=== PATIENT | male | born 1990 | race Caucasian/White ===

== ENCOUNTER 2021-01-06 19:56 | Inpatient (IN) | payer OTHER, SELFPAY ==
[2021-01-06 20:00] VITALS: BP 121/72; PULSE 90; RESP 16; TEMP 37.2; O2SAT 95; BMI 30.4
[2021-01-06] MEDS: LORazepam 1 MG TABLET 2 MG PO (20:17)
[2021-01-06 20:54] LABS: Appearance Urine HAZY; Color Urine DK YELLOW; Glucose Urine UA NEG (NEG); Leukocyte Esterase Urine NEG (NEG); Nitrite Urine NEG (NEG); Specific Gravity - Urine >= 1.030 (1.005-1.025); UACC Culture Trigger NO; Urine Blood NEG (NEG); Urine Ketones 15 MG/DL (NEG); Urine Protein 1+ MG/DL (NEG-TRACE)
[2021-01-06 21:02] LABS: Bacteria Urine TRACE /LPF; Granular Casts Urine 0-2 /LPF; Hyaline Casts Urine 0-2 /LPF; Mucus Urine 4+ /LPF; RBC Urine 0-2 /HPF (0); Squamous Epithelial Cell Urine 2+ /LPF; WBC Urine 0 /HPF (0-4)
--- NOTE | 2021-01-06 21:10 | ED.PSYCH ---
HPI - Psych General Chief Complaint: Psychiatric Symptoms Stated Complaint: si Time Seen by Provider: 01/06/21 20:13 Source: patient Mode of arrival: ambulatory Limitations: no limitations History of Present Illness HPI Narrative: 30-year-old male with a past medical history of anxiety, depression, substance abuse here with complaints of suicidal thoughts with plan to overdose on his IV heroin. Patient tells me he is not currently taking any medications for his mental health. He is on methadone 60 mg daily. He continues to use IV drugs tend to 20 bundles of heroin daily. He also uses cocaine daily. He does inject cocaine. He denies any additional drug use. No homicidal ideations or hallucinations. No physical complaints Related Data Home Medications Medication Instructions Recorded Confirmed methadone 10 mg/mL oral 60 mg PO DAILY 01/06/21 concentrate (Methadone Intensol) Allergies Allergy/AdvReac Type Severity Reaction Status Date / Time No Known Allergies Allergy Unverified 01/03/20 17:05 [No Known Allergies*] Review of Systems Review of Systems: Yes all other systems are reviewed and are negative Constitutional: Constitutional: Reports no additional constitutional complaints, Denies body ache(s), Denies chills, Denies fever(s), Denies headache(s) and Denies weakness Eyes: Eyes: Reports no additional eye complaints and Denies change in vision ENT: Reports system reviewed and no additional complaints, except as documented, Denies dizziness, Denies headache(s), Denies nasal congestion, Denies nasal discharge and Denies neck pain Cardiovascular: Cardiovascular: Reports no additional cardiovascular complaints, Denies chest pain, Denies leg edema and Denies dyspnea Respiratory: Respiratory: Reports no additional respiratory complaints, Denies cough and Denies dyspnea Gastrointestinal: Gastrointestinal: Reports no additional gastrointestinal complaints, Denies abdominal pain, Denies diarrhea, Denies nausea and Denies vomiting Genitourinary: Genitourinary: Denies urinary incontinence Musculoskeletal: Musculoskeletal: Reports no additional musculoskeletal complaints, Denies back pain, Denies arthralgias, Denies joint swelling, Denies neck pain, Denies numbness and Denies tingling Integumentary/Breasts: Skin/Breast: Reports system reviewed and no additional complaints, except as docu and Denies rash Neurologic: Reports system reviewed and no additional complaints, except as documented, Denies Abnormal speech present, Denies dizziness, Denies headache(s), Denies numbness, Denies tingling and Denies weakness Psychiatric: Psychiatric: Reports anxiety, Denies depression, Denies homicidal ideation and Reports suicidal ideation [facility] Past Medical History Attestation statement: The following information was validated with the patient. Source: old records reviewed and nursing notes reviewed Medical History Anxiety Depressed Social History Social History Advance Directives: No Advance Directives Information Provided: Yes Physical Exam Vital Signs: Vital Signs: Last Vital Signs Temp 99.0 F 01/06/21 20:00 Pulse 90 01/06/21 20:00 Resp 16 01/06/21 20:00 BP 121/72 01/06/21 20:00 Pulse Ox 95 01/06/21 20:00 Body Mass Index 30.4 Const: General: cooperative, healthy appearing, comfortable and no acute distress Orientation/consciousness: patient oriented x3 Limitations: no limitations HENMT: Head: Yes normal to inspection Ears: hearing grossly normal bilaterally General nose exam: Normal external nose present Face and sinus: Yes normal facial exam Mouth: Normal oral and palatal mucosa present Throat: Yes posterior oropharynx normal Eyes: General: appearance normal, both eyes and all related structures Pupils: Equal, round and reactive pupils present Neck: Neck: Yes normal visual inspection Chest: Chest palpation & inspection: normal inspection of the chest Resp: Effort & Inspection: normal respiratory effort Auscultation: clear to auscultation bilaterally Cardio: Rate: regular rate Rhythm: regular rhythm Peripheral pulses: Peripheral pulses 2+ throughout GI: Inspection: Yes normal to inspection Palpation (GI): Soft to palpation and nontender Auscultation: normal bowel sounds Back/Spine/Pelvis: Thoracic/Lumbar Spine: thoracic and lumbar spine normal to inspection Skin: General skin exam: no rashes or lesions noted Neuro: General: patient oriented x3, no focal motor deficits and normal sensation to monofilament Cranial nerves: Yes CN's II-XII intact bilaterally and Yes Equal, round and reactive pupils present Cognition (Neuro): normal cognition Speech: No Abnormal speech present Gait exam (Neuro): Normal gait present Motor exam (neuro): 5/5 motor strength present throughout Extrem: General: Yes normal to inspection Course Course Course Narrative: 30-year-old male here with complaints of suicidal thoughts No concern for acute ingestion or trauma No physical complaints Will check screening labs including drug screen and COVID screen. Will need crisis evaluation [id number] in physician observation pending disposition MDM - Psych Medical Records Attestation: I reviewed the patient's medical records. Lab Data Attestation: I reviewed the patient's lab results. Result diagrams: 01/07/21 00:07 01/07/21 01:06 Labs: Lab Results 01/06/21 01/06/21 01/06/21 Range/Units 20:41 20:44 20:44 WBC (4.8-10.8) X10*3/uL RBC (4.60-5.80) X10*6/uL Hgb (14.0-18.0) g/dl Hct (42-52) % MCV (80-98) fL MCH (27.0-33.0) pg MCHC (31.0-36.0) g/dl RDW (11.0-16.0) % Plt Count (160-400) X10*3/uL MPV (9.4-12.4) fL Immature Gran % (Auto) (0.0-0.4) % Neut % (Auto) (45-73) % Lymph % (Auto) (20-40) % Pratt % (Auto) (2-11) % Eos % (Auto) (0-4) % Baso % (Auto) (0-2) % Lymph # (Auto) (1.2-4.9) X10*3/uL Pratt # (Auto) (0.1-1.2) X10*3/uL Eos # (Auto) (0.0-0.4) X10*3/uL Baso # (Auto) (0.0-0.2) X10*3/uL Abs Immat Gran (auto) (0.00-0.03) X10*3/uL Absolute Neuts (auto) (2.0-8.3) X10*3/uL Absolute Nucleated RBC (0.0-0.012) X10*3/uL Nucleated RBC % (auto) (0.0-0.2) /100WBC Sodium (135-145) mmol/L Potassium (3.3-5.1) mmol/L Chloride (96-108) mmol/L Carbon Dioxide (22-29) mmol/L Anion Gap (12-20) BUN (9-16) mg/dL Creatinine (0.5-1.4) mg/dL Estim Creat Clear Calc Estimated GFR Random Glucose (60-115) mg/dL Calcium (8.4-10.2) mg/dL Total Bilirubin (0.0-1.0) mg/dL Direct Bilirubin (0.0-0.5) mg/dL AST (5-37) U/L ALT (0-40) U/L Alkaline Phosphatase (39-117) U/L Total Protein (6.5-8.0) g/dL Albumin (3.5-5.0) g/dL Urine Color DK YELLOW Urine Appearance HAZY Urine pH 6.0 (5.0-8.0) Ur Specific [place] >= 1.030 H (1.005-1.025) Urine Protein 1+ H (NEG-TRACE) MG/DL Urine Glucose (UA) NEG (NEG) MG/DL Urine Ketones 15 (NEG) MG/DL Urine Blood NEG (NEG) Urine Nitrite NEG (NEG) Ur Leukocyte Esterase NEG (NEG) Urine RBC 0-2 (0) /HPF Urine WBC 0 (0-4) /HPF Ur Squamous Epith Cells 2+ /LPF Urine Bacteria TRACE /LPF Hyaline Casts 0-2 /LPF Granular Casts 0-2 /LPF Urine Mucus 4+ /LPF Urine Opiates Screen Not Detected (Not Detect) Urine Fentanyl Screen POSITIVE H (Not Detect) Ur Barbiturates Screen Not Detected (Not Detect) Ur Phencyclidine Scrn Not Detected (Not Detect) Ur Amphetamines Screen Not Detected (Not Detect) U Benzodiazepines Scrn POSITIVE H (Not Detect) Urine Cocaine Screen POSITIVE H (Not Detect) U Marijuana (THC) Screen Not Detected (Not Detect) Ethyl Alcohol mg/dL COVID-19 ([facility]) Negative (Negative) COVID-19 Clin Com See Note 01/07/21 01/07/21 01/07/21 Range/Units 00:07 01:06 01:06 WBC 8.5 (4.8-10.8) X10*3/uL RBC 4.56 L (4.60-5.80) X10*6/uL Hgb 13.7 L (14.0-18.0) g/dl Hct 39.9 L (42-52) % MCV 87.5 (80-98) fL MCH 30.0 (27.0-33.0) pg MCHC 34.3 (31.0-36.0) g/dl RDW 13.4 (11.0-16.0) % Plt Count 243 (160-400) X10*3/uL MPV 9.2 L (9.4-12.4) fL Immature Gran % (Auto) 0.1 (0.0-0.4) % Neut % (Auto) 42.3 L (45-73) % Lymph % (Auto) 47.1 H (20-40) % Pratt % (Auto) 9.3 (2-11) % Eos % (Auto) 0.8 (0-4) % Baso % (Auto) 0.4 (0-2) % Lymph # (Auto) 4.0 (1.2-4.9) X10*3/uL Pratt # (Auto) 0.8 (0.1-1.2) X10*3/uL Eos # (Auto) 0.1 (0.0-0.4) X10*3/uL Baso # (Auto) 0.0 (0.0-0.2) X10*3/uL Abs Immat Gran (auto) 0.01 (0.00-0.03) X10*3/uL Absolute Neuts (auto) 3.6 (2.0-8.3) X10*3/uL Absolute Nucleated RBC 0.000 (0.0-0.012) X10*3/uL Nucleated RBC % (auto) 0.0 (0.0-0.2) /100WBC Sodium 139 (135-145) mmol/L Potassium 4.0 (3.3-5.1) mmol/L Chloride 104 (96-108) mmol/L Carbon Dioxide 24 (22-29) mmol/L Anion Gap 15 (12-20) BUN 30 H (9-16) mg/dL Creatinine 1.32 (0.5-1.4) mg/dL Estim Creat Clear Calc 110.7 Estimated GFR > 60 Random Glucose 127 H (60-115) mg/dL Calcium 9.2 (8.4-10.2) mg/dL Total Bilirubin 0.4 (0.0-1.0) mg/dL Direct Bilirubin 0.2 (0.0-0.5) mg/dL AST 23 (5-37) U/L ALT 24 (0-40) U/L Alkaline Phosphatase 116 (39-117) U/L Total Protein 7.4 (6.5-8.0) g/dL Albumin 4.3 (3.5-5.0) g/dL Urine Color Urine Appearance Urine pH (5.0-8.0) Ur Specific [place] (1.005-1.025) Urine Protein (NEG-TRACE) MG/DL Urine Glucose (UA) (NEG) MG/DL Urine Ketones (NEG) MG/DL Urine Blood (NEG) Urine Nitrite (NEG) Ur Leukocyte Esterase (NEG) Urine RBC (0) /HPF Urine WBC (0-4) /HPF Ur Squamous Epith Cells /LPF Urine Bacteria /LPF Hyaline Casts /LPF Granular Casts /LPF Urine Mucus /LPF Urine Opiates Screen (Not Detect) Urine Fentanyl Screen (Not Detect) Ur Barbiturates Screen (Not Detect) Ur Phencyclidine Scrn (Not Detect) Ur Amphetamines Screen (Not Detect) U Benzodiazepines Scrn (Not Detect) Urine Cocaine Screen (Not Detect) U Marijuana (THC) Screen (Not Detect) Ethyl Alcohol < 10 mg/dL COVID-19 ([facility]) (Negative) COVID-19 Clin Com ECG Data Attestation: I personally reviewed and interpreted this ECG as follows: ECG interpretation date: 01/07/21 ECG interpretation time: 01:30 Interpretation: Normal sinus rhythm with rate of 61, normal OK, normal QRS, prolonged QT 555 Discharge Plan Discharge Clinical Impression: Suicidal ideation Prescriptions: No Action methadone [Methadone Intensol] 10 mg/mL Concentrate 60 mg PO DAILY RF: 0
[2021-01-06 21:13] LABS: COVID-19 Test Negative (Negative); IDNOW Serial# 9DD0AD1C
--- NOTE | 2021-01-06 21:41 | PM.IMHP ---
History of Present Illness Date of Service: 01/06/21 Chief Complaint: [facility] Medical History Anxiety Depressed Social History Advance Directives: No Advance Directives Information Provided: Yes Meds Allergies Allergy/AdvReac Type Severity Reaction Status Date / Time No Known Allergies Allergy Unverified 01/03/20 17:05 [No Known Allergies*] Active Medications: Current Medications Nicotine Polacrilex (Nicotine Polacrilex 2 Mg Gum) 2 mg BUCCAL QID PRN PRN Reason: nicotine cravings Pharmacy Consult (Consult Rx Perform Med Rec) 1 each MISCELLANE ONCE PRN PRN Reason: Consult order Physical Exam Vital Signs and Narrative: Vital Signs: Last Vital Signs Temp 99.0 F 01/06/21 20:00 Pulse 90 01/06/21 20:00 Resp 16 01/06/21 20:00 BP 121/72 01/06/21 20:00 Pulse Ox 95 01/06/21 20:00 Body Mass Index 30.4 Results Labs Labs: Laboratory Results - last 24 hr 01/06/21 01/06/21 01/06/21 20:41 20:44 20:44 Urine Color DK YELLOW Urine Appearance HAZY Urine pH 6.0 Ur Specific [place] >= 1.030 H Urine Protein 1+ H Urine Glucose (UA) NEG Urine Ketones 15 Urine Blood NEG Urine Nitrite NEG Ur Leukocyte Esterase NEG Urine RBC 0-2 Urine WBC 0 Ur Squamous Epith Cells 2+ Urine Bacteria TRACE Hyaline Casts 0-2 Granular Casts 0-2 Urine Mucus 4+ Urine Opiates Screen Not Detected Ur Barbiturates Screen Not Detected Ur Phencyclidine Scrn Not Detected Ur Amphetamines Screen Not Detected U Benzodiazepines Scrn POSITIVE H Urine Cocaine Screen POSITIVE H U Marijuana (THC) Screen Not Detected COVID-19 ([facility]) Negative COVID-19 Clin Com See Note
--- NOTE | 2021-01-06 21:49 | PHA.MEDREC ---
Pharmacy Consult ? Medication Reconciliation Pharmacy has completed the medication reconciliation. Pt states they receive 60mg methadone from [facility] Thanks Sera Shane
--- NOTE | 2021-01-06 22:58 | ECG_ITS ---
Test Reason : MEDICAL CLEARENCE Blood Pressure : / mmHG Vent. Rate : 063 BPM Atrial Rate : 063 BPM P-R Int : 190 ms QRS Dur : 100 ms QT Int : 540 ms P-R-T Axes : 054 -03 041 degrees QTc Int : 552 ms Normal sinus rhythm Prolonged QT Abnormal ECG When compared with ECG of 27-NOV-2015 14:08, QT has lengthened Referred By: Misty [place] Electronically Signed By:ERIN WATTERS
[2021-01-06 23:42] LABS: Amphetamine Screen Urine Not Detected (Not Detect); Barbiturates, Urine Not Detected (Not Detect); Benzodiazepines Screen Urine POSITIVE (Not Detect); Cannabinoid Screen Urine Not Detected (Not Detect); Cocaine Screen Urine POSITIVE (Not Detect); Fentanyl, urine POSITIVE (Not Detect); Opiate Screen Urine Not Detected (Not Detect); Phencyclidine Screen Urine Not Detected (Not Detect)
[2021-01-07] VITALS (7 sets, daily range): BP systolic 121–128; BP diastolic 55–80; PULSE 54–77; RESP 17; TEMP 36.2–36.8; O2SAT 95–97
[2021-01-07 00:14] LABS: Basophils Percent Auto 0.4 % (0-2); Eosinophils Absolute Auto 0.1 X10*3/uL (0.0-0.4); Eosinophils Percent Auto 0.8 % (0-4); Hematocrit 39.9 % (42-52); Hemoglobin 13.7 g/dl (14.0-18.0); Imm Gran Abs Auto 0.01 X10*3/uL (0.00-0.03); Imm Gran Pct Auto 0.1 % (0.0-0.4); Lymphocytes Percent Auto 47.1 % (20-40); MANUAL DIFF FLAG NO; Mean Corpuscular HGB Conc 34.3 g/dl (31.0-36.0); Mean Corpuscular Volume 87.5 fL (80-98); Mean Platelet Volume 9.2 fL (9.4-12.4); Monocytes Absolute Auto 0.8 X10*3/uL (0.1-1.2); Monocytes Percent Auto 9.3 % (2-11); Neutrophils Absolute Auto 3.6 X10*3/uL (2.0-8.3); Neutrophils Percent Auto 42.3 % (45-73); Platelet Count 243 X10*3/uL (160-400); Red Blood Count 4.56 X10*6/uL (4.60-5.80); Red Cell Distribution Width 13.4 % (11.0-16.0); White Blood Count 8.5 X10*3/uL (4.8-10.8)
[2021-01-07 01:39] LABS: Ethanol < 10 mg/dL
[2021-01-07 01:43] LABS: Alanine Aminotransferase 24 U/L (0-40); Albumin Level 4.3 g/dL (3.5-5.0); Alkaline Phosphatase 116 U/L (39-117); Anion Gap 15 (12-20); Aspartate Amino Transferase 23 U/L (5-37); Bilirubin Direct 0.2 mg/dL (0.0-0.5); Bilirubin Total 0.4 mg/dL (0.0-1.0); Blood Urea Nitrogen 30 mg/dL (9-16); Calcium 9.2 mg/dL (8.4-10.2); Carbon Dioxide 24 mmol/L (22-29); Chloride 104 mmol/L (96-108); Creatinine Clr Calc Pharmacy 110.7; Estimated Glomerular Filt Rate > 60; Glucose Random 127 mg/dL (60-115); Sodium 139 mmol/L (135-145); Total Protein 7.4 g/dL (6.5-8.0)
--- NOTE | 2021-01-07 06:58 | PC.NURSE ---
Patient slept through the night, no distress observed reported, [facility] referral competed/confirmed, patient will be evaluated in the morning, patient is not any medication except Methadone, dose verified faxed to pharmacy, reconciled by provider, VSS, will continue to monitor.
--- NOTE | 2021-01-07 10:06 | MHC.CARE ---
Patient evaluated by CARE Team to need inpatient psychiatric treatment. Will be admitted to [facility] today, he is agreeable to this plan. Returned Item Clerk consulted, providers updated.
[2021-01-07] MEDS: methADONE HCl 20 MG/2 ML ORAL.CONC 60 MG PO (10:18)
--- NOTE | 2021-01-07 14:17 | PC.NURSE ---
REPORT GIVEN TO PEPE ON [facility]
[2021-01-07] MEDS: LORazepam 1 MG TABLET PO ×2 (15:40→20:38)
[2021-01-07] MEDS: cloNIDine HCL 0.1 MG TABLET PO ×2 (15:41→20:38)
--- NOTE | 2021-01-07 21:16 | PC.ADMIT ---
A white, male aged 30 years was admitted to [facility] at 1600 as a CV following referral from [facility] and CARE Team. Pt reports was admitted to [facility] previously in 2016 for intentional overdose. Pt reports other psychiatric and substance related admissions elsewhere. Pt was brought to [facility] by family for evaluation as pt had been endorsing suicidal ideation and said had been using increased amounts of drugs in hopes he would . Pt has a history of using opiates, cocaine and benzodiazepines since pt's teen years with periods of recovery following CSS, TSS, Section 35s. Pt is currently prescribed methadon. Pt was calm and cooperative during admission. Pt c/o withdrawal symptoms with some diaphoresis and bodyaches. COWS ordered Q shift; pt is utilizing PRN meds. Pt TORRES was positive for benzos, fentanyl and cocaine; pt reports daily use. Pt denies use of Etoh. Pt denies medical issues except for constipation, mild weight loss r/t poor appetite, and intermittent dizziness upon position change during past 6 months causing 2 or more falls that pt thinks is related to poor intake of food / fluids and drug use. Pt had prolonged QTc of 552; repeat EKG ordered tomorrow. Pt reported during admission some current SI without plan here. Pt said in past 2 weeks has thought of jumping in the road in front of a truck. Pt denies has access to firearms. Pt says can seek out help from staff for feelings of SI. Pt reports anxiety 89/10 and depression 10/10. Pt is on 15 minute safety checks at this time. [id number] done, admitting orders obtained, initial Treatment Plan done.
[2021-01-08] MEDS: Nicotine 21 MG PATCH.TD24 TRANSDERMA (09:00)
--- NOTE | 2021-01-08 09:00 | ECG_ITS ---
Test Reason : QTC PROLONGATION Blood Pressure : / mmHG Vent. Rate : 053 BPM Atrial Rate : 053 BPM P-R Int : 186 ms QRS Dur : 092 ms QT Int : 478 ms P-R-T Axes : 068 010 048 degrees QTc Int : 448 ms Sinus bradycardia with sinus arrhythmia Otherwise normal ECG When compared with ECG of 07-JAN-2021 01:32, QT has shortened Referred By: Amanda Belcher Electronically Signed By:ERIN WATTERS
[2021-01-08] MEDS: methADONE HCl 20 MG/2 ML ORAL.CONC 60 MG PO (09:01)
[2021-01-08] MEDS: Multivitamin TABLET 1 TAB PO (09:01)
[2021-01-08] MEDS: Omeprazole 40 MG CAPSULE.DR PO (09:01)
[2021-01-08 09:07] LABS: Estimated Average Glucose 111 mg/dL; Hemoglobin A1C 128.2671 umol/L; Hemoglobin A1c % 5.5 %
[2021-01-08 09:10] LABS: Cholesterol 154 mg/dL; HDL Cholesterol 29 mg/dL; LDL Cholesterol Calculated 106 mg/dl; Magnesium 2.2 mg/dL (1.6-2.6); Triglycerides 99 mg/dL
[2021-01-08 09:33] LABS: Free T4 (Free Thyroxine) 1.05 ng/dL (0.71-1.85); Thyroid Stimulating Hormone 1.78 uIU/mL (0.32-4.0)
[2021-01-08 09:59] LABS: Folate 15.2 ng/mL (> or = 4.0); Vitamin B12 1083 pg/mL (200-900)
--- NOTE | 2021-01-08 15:14 | HO.PSYADMNOT ---
HPI Chief Complaint: major depression, opiate, cocaine use disorder Sources of Information: patient interviewed, chart reviewed and crisis/core team assessment reviewed HPI Subjective Notes: Billy Warning and Conditional Voluntary Healthcare Proxy: No Guardianship: No Medical Problems Affecting Mental Status: No Narrative: Can we do the specifics tomorrow? I don't feel good. 30 yo male admitted with an increase in depression, anxiety with SI and plans to OD. Pt also relapsed on substances ~9 months. Had been in a sober living environment, left Mar 2020 and relapsed, prior to that he reports he put together ~5 months of sobriety. Toxic screen positive for fentanyl, benzodiazepines, cocaine. Reports sleep and appetite disturbance, lability, guilt and regret regarding his life and feeling as if there is not purpose. Pt approached x 3 today. He was in bed, spoke briefly, and then asked to postpone a formal meeting as he was feeling symptomatic. Past Psychiatric History: IP: [facility] 2016 s/p heroin overdose OP: Denies current alliance Trials: Affirms, without ability to give specifics Medical Evaluation Reviewed: Yes [facility] Medical History (Updated 01/08/21 @ 15:28 by Amanda Belcher, V BELT COVERER) Anxiety Depressed Opioid use disorder, severe, dependence Severe recurrent major depression Family History: addiction, depression Social History: Middle child of three. Father passed in 2015 of cirrhosis. Left school in his carmel year Hx of athletic skill and talent. Reports injury with need for pain medication and resulting transition to opiates Substance History: Methadone 60 mg daily with [facility], [facility] History of several treatment interventions including detox, [place], TSS, CSS and obtained four months of sobriety while living in a sober home-left this home Mar 2020 and has relapsed since Trauma History: Affirms Diagnostics Vital Signs (24Hr): Vital Signs - 24 hr 01/07/21 15:41 01/07/21 18:05 01/07/21 20:25 Temperature 97.2 F 97.1 F Pulse Rate 54 69 77 Blood Pressure 122/55 L 128/80 121/68 Pulse Oximetry 97 01/07/21 20:38 Temperature Pulse Rate 77 Blood Pressure 121/68 Pulse Oximetry Body Mass Index 30.4 Labs Results: 01/07/21 00:07 01/07/21 01:06 Labs: Laboratory Results - last 48 hr 01/06/21 01/06/21 01/06/21 20:41 20:44 20:44 WBC RBC Hgb Hct MCV MCH MCHC RDW Plt Count MPV Immature Gran % (Auto) Neut % (Auto) Lymph % (Auto) [place] % (Auto) Eos % (Auto) Baso % (Auto) Lymph # (Auto) [place] # (Auto) Eos # (Auto) Baso # (Auto) Abs Immat Gran (auto) Absolute Neuts (auto) Absolute Nucleated RBC Nucleated RBC % (auto) Sodium Potassium Chloride Carbon Dioxide Anion Gap BUN Creatinine Estim Creat Clear Calc Estimated GFR Random Glucose Estimat Average Glucose Hemoglobin A1c % Calcium Magnesium Total Bilirubin Direct Bilirubin AST ALT Alkaline Phosphatase Total Protein Albumin Triglycerides Cholesterol LDL Cholesterol, Calc HDL Cholesterol Vitamin B12 Folate TSH Free T4 Urine Color DK YELLOW Urine Appearance HAZY Urine pH 6.0 Ur Specific [place] >= 1.030 H Urine Protein 1+ H Urine Glucose (UA) NEG Urine Ketones 15 Urine Blood NEG Urine Nitrite NEG Ur Leukocyte Esterase NEG Urine RBC 0-2 Urine WBC 0 Ur Squamous Epith Cells 2+ Urine Bacteria TRACE Hyaline Casts 0-2 Granular Casts 0-2 Urine Mucus 4+ Urine Opiates Screen Not Detected Urine Fentanyl Screen POSITIVE H Ur Barbiturates Screen Not Detected Ur Phencyclidine Scrn Not Detected Ur Amphetamines Screen Not Detected U Benzodiazepines Scrn POSITIVE H Urine Cocaine Screen POSITIVE H U Marijuana (THC) Screen Not Detected Ethyl Alcohol COVID-19 ([facility]) Negative COVID-19 Clin Com See Note 01/07/21 01/07/21 01/07/21 00:07 01:06 01:06 WBC 8.5 RBC 4.56 L Hgb 13.7 L Hct 39.9 L MCV 87.5 MCH 30.0 MCHC 34.3 RDW 13.4 Plt Count 243 MPV 9.2 L Immature Gran % (Auto) 0.1 Neut % (Auto) 42.3 L Lymph % (Auto) 47.1 H [place] % (Auto) 9.3 Eos % (Auto) 0.8 Baso % (Auto) 0.4 Lymph # (Auto) 4.0 [place] # (Auto) 0.8 Eos # (Auto) 0.1 Baso # (Auto) 0.0 Abs Immat Gran (auto) 0.01 Absolute Neuts (auto) 3.6 Absolute Nucleated RBC 0.000 Nucleated RBC % (auto) 0.0 Sodium 139 Potassium 4.0 Chloride 104 Carbon Dioxide 24 Anion Gap 15 BUN 30 H Creatinine 1.32 Estim Creat Clear Calc 110.7 Estimated GFR > 60 Random Glucose 127 H Estimat Average Glucose Hemoglobin A1c % Calcium 9.2 Magnesium Total Bilirubin 0.4 Direct Bilirubin 0.2 AST 23 ALT 24 Alkaline Phosphatase 116 Total Protein 7.4 Albumin 4.3 Triglycerides Cholesterol LDL Cholesterol, Calc HDL Cholesterol Vitamin B12 Folate TSH Free T4 Urine Color Urine Appearance Urine pH Ur Specific Wray Urine Protein Urine Glucose (UA) Urine Ketones Urine Blood Urine Nitrite Ur Leukocyte Esterase Urine RBC Urine WBC Ur Squamous Epith Cells Urine Bacteria Hyaline Casts Granular Casts Urine Mucus Urine Opiates Screen Urine Fentanyl Screen Ur Barbiturates Screen Ur Phencyclidine Scrn Ur Amphetamines Screen U Benzodiazepines Scrn Urine Cocaine Screen U Marijuana (THC) Screen Ethyl Alcohol < 10 COVID-19 ([facility]) COVID-19 [employer] Com 01/08/21 01/08/21 01/08/21 08:06 08:06 08:06 WBC RBC Hgb Hct MCV MCH MCHC RDW Plt Count MPV Immature Gran % (Auto) Neut % (Auto) Lymph % (Auto) [place] % (Auto) Eos % (Auto) Baso % (Auto) Lymph # (Auto) [place] # (Auto) Eos # (Auto) Baso # (Auto) Abs Immat Gran (auto) Absolute Neuts (auto) Absolute Nucleated RBC Nucleated RBC % (auto) Sodium Potassium Chloride Carbon Dioxide Anion Gap BUN Creatinine Estim Creat Clear Calc Estimated GFR Random Glucose Estimat Average Glucose 111 Hemoglobin A1c % 5.5 Calcium Magnesium 2.2 Total Bilirubin Direct Bilirubin AST ALT Alkaline Phosphatase Total Protein Albumin Triglycerides 99 Cholesterol 154 LDL Cholesterol, Calc 106 HDL Cholesterol 29 Vitamin B12 1083 H Folate 15.2 TSH 1.78 Free T4 1.05 Urine Color Urine Appearance Urine pH Ur Specific [place] Urine Protein Urine Glucose (UA) Urine Ketones Urine Blood Urine Nitrite Ur Leukocyte Esterase Urine RBC Urine WBC Ur Squamous Epith Cells Urine Bacteria Hyaline Casts Granular Casts Urine Mucus Urine Opiates Screen Urine Fentanyl Screen Ur Barbiturates Screen Ur Phencyclidine Scrn Ur Amphetamines Screen U Benzodiazepines Scrn Urine Cocaine Screen U Marijuana (THC) Screen Ethyl Alcohol COVID-19 ([facility]) COVID-19 Clin Com EKG EKG Comment: QTc was high on , today QTc 448 Meds/Allergies Meds Home Medications Acetaminophen (Acetaminophen 325 Mg Tablet) 650 mg PO Q6H PRN PRN Reason: Headache/Pain Mild Scale (1-3) Al Hydroxide/Mg Hydroxide (Magnesium Hydrox/Alum Hydrox 30 Ml Oral.Susp) 30 ml PO Q6H PRN PRN Reason: Heartburn/Nausea Clonidine HCl (Clonidine Hcl 0.1 Mg Tablet) 0.1 mg PO TID PRN; Protocol PRN Reason: withdrawal Last Admin: 01/07/21 20:38 Dose: 0.1 mg Documented by: Lorazepam (Lorazepam 1 Mg Tablet) 1 mg PO Q4H PRN PRN Reason: withdrawal Last Admin: 01/07/21 20:38 Dose: 1 mg Documented by: Magnesium Hydroxide (Milk Of Magnesia 30 Ml Oral.Susp) 30 ml PO DAILY PRN PRN Reason: Constipation Methadone HCl (Methadone Hcl 20 Mg/2 Ml Oral.Conc) 60 mg PO DAILY [facility] Last Admin: 01/08/21 09:01 Dose: 60 mg Documented by: Multivitamins/Vitamin C (Multivitamin Tablet) 1 tab PO DAILY [facility] Last Admin: 01/08/21 09:01 Dose: 1 tab Documented by: Nicotine (Nicotine 21 Mg Patch.Td24) 21 mg TRANSDERMA DAILY [facility] Last Admin: 01/08/21 09:00 Dose: 21 mg Documented by: Nicotine Polacrilex (Nicotine Polacrilex 2 Mg Gum) 2 mg BUCCAL QID PRN PRN Reason: nicotine cravings Omeprazole (Omeprazole 40 Mg Capsule.Dr) 40 mg PO DAILY@0630 [facility] Last Admin: 01/08/21 09:01 Dose: 40 mg Documented by: Trazodone HCl (Trazodone Hcl 50 Mg Tablet) 50 mg PO BEDTIME PRN PRN Reason: Insomnia Allergies Allergies Allergy/AdvReac Type Severity Reaction Status Date / Time No Known Allergies Allergy Unverified 01/03/20 17:05 [No Known Allergies*] Mental Status Exam Mental Status Exam Patient Appearance: Fatigued and Disheveled Patient Orientation: Person, Place, Time and Situation Level of Consciousness: Restless and Alert Patient Behavior: Guarded, Talkative, Suspicious, Restless, Anxious, Fearful, Resistive to Care, Avoidant, Fatigued, Distractible, Isolative and Poor Eye Contact Mood Description: Depressed Affect Description: Flat Patient Cognition Impaired: No Ability to Follow Directions: Good Speech Pattern: Spontaneous Speech Memory Description: Episodic Impaired Hallucinations: None Delusions: Not Present Thought Process: Rumination and Evasive Thought Content: positive for Slowed Thinking, positive for Evasive and positive for Suicidal Ideation Depressive Symptoms: Insomnia, Diff. Making Decisions, Difficulty Sleeping, Loss of Int. in Activity, Feelings of Worthlessness, Hopelessness, Isolating-Friends/Family, Feelings of Guilt, Unhappiness, Increased Fatigue, Thoughts of /Suicide, Low Self Esteem, Loss of Energy and Difficulty Concentrating Abnormal Motor Activity Signs and Symptoms: Restlessness Judgement: Fair Assessment & Plan Assessment & Plan (1) Severe recurrent major depression: Status: Acute Code(s): F33.2 - Major depressive disorder, recurrent severe without psychotic features (2) Opioid use disorder, severe, dependence: Status: Acute Code(s): F11.20 - Opioid dependence, uncomplicated Assessment and Plan: 30 yo male to ER with mother and girlfriend with reports of SI with plan to OD. Pt broke 4 months of sobriety 9 months ago and has been increasing his volume of use in hopes of overdose and . Reports poor sleep and appetite, nightmares, guilt, fatigue, poor concentration and regret that his life has taken this turn. Today, pt talks briefly x 3 yet declines to meet, citing not feeling well. Diagnostics reviewed, QTc is improving. Pt with slight anemia. Plan: -Iron Profile -No medication changes at this time. Will attempt a longer meeting with pt on 01/09. Reason for continued inpatient stay Substantial Risk for: harm to self, inability to function, rapid decompensation and med/psych decompensation
[2021-01-08 16:00] VITALS: PULSE 51
[2021-01-08 16:11] VITALS: BP 126/60; PULSE 51; TEMP 36.3; O2SAT 97
[2021-01-08 19:27] VITALS: BP 135/84; PULSE 71
[2021-01-08] MEDS: cloNIDine HCL 0.1 MG TABLET PO (19:27)
[2021-01-08] MEDS: LORazepam 1 MG TABLET PO (19:27)
[2021-01-08] MEDS: Nicotine Polacrilex 2 MG GUM BUCCAL (19:28)
[2021-01-09] MEDS: Omeprazole 40 MG CAPSULE.DR PO (09:08)
[2021-01-09] MEDS: Nicotine 21 MG PATCH.TD24 TRANSDERMA (09:08)
[2021-01-09] MEDS: Multivitamin TABLET 1 TAB PO (09:08)
[2021-01-09] MEDS: methADONE HCl 20 MG/2 ML ORAL.CONC 60 MG PO (09:08)
[2021-01-09 12:27] VITALS: BP 117/59; PULSE 88
[2021-01-09] MEDS: LORazepam 1 MG TABLET PO ×2 (12:27→17:48)
[2021-01-09] MEDS: cloNIDine HCL 0.1 MG TABLET PO (12:27)
[2021-01-09 13:32] LABS: Iron 66 mcg/dL (45-160); Percent Iron Saturation 21 % (15-50); Total Iron Binding Capacity 311 mcg/dL (228-428); Unsaturated Iron Binding 245 ug/dL
[2021-01-09 18:00] VITALS: BP 108/78; PULSE 78; TEMP 36.9
--- NOTE | 2021-01-09 18:07 | P.PNPSI_ITS ---
Subjective Subjective Date of Service: 01/09/21 Reason For Visit: major depression, opiate, cocaine use disorder Subjective Notes: Conditional Voluntary Medical Problems Affecting Mental Status: No Interim History: Met with pt and Codey COTE today. Pt presents crying and significantly depressed. Longest sobriety has been one year. Pt has been off meds for ~1 year as well (hx Wellbutrin, Seroquel, Vyvanse, Ativan). Reports sx have always been bad- I just want to sleep and not think . Describes a significant trauma history which he has not attempted to work with yet-believes his mental health issues have not been properly addressed. 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 He was living in a sober home, relapsed, moved back to mother's home and this has not worked as he states mother has her own issues. States he has been to several programs, has a history of needing Narcan a few times and is currently using Fentanyl/Cocaine. He reports that on the unit he is not actively suicidal but feels very depressed, anxious with racing thoughts, stating my life is just horrible now. Pt agrees to trial medications again-Wellbutrin and Seroquel have helped somewhat by history, although he is unsure about if anything will work. Medication Compliance: No Side effects from medications: No Attending Groups: No Review of Systems Acute medical concerns: No Medical Review of Systems: unchanged Review of Systems Reports behavioral changes Psychiatric: Reports abnormal sleep pattern, Reports anxiety, Reports behavioral changes, Reports change in appetite, Reports depression, Reports difficulty concentrating, Reports hopelessness, Reports irritability, Reports anhedonia, Reports mood swings, Reports panic attacks and Reports suicidal ideation Mental Status Exam Mental Status Exam Patient Appearance: Fatigued Patient Orientation: Person, Place, Time and Situation Level of Consciousness: Alert Patient Behavior: Talkative, Cooperative, Passive, Anxious, Fatigued, Distractible, Crying and Poor Eye Contact Mood Description: Depressed Affect Description: Flat Patient Cognition Impaired: No Ability to Follow Directions: Good Speech Pattern: Spontaneous Speech Memory Description: Episodic Impaired Hallucinations: None Delusions: Not Present Perceptual Disturbances: Depersonalization and Derealization Thought Process: Rumination Thought Content: positive for Circumstantial and positive for Perseveration Depressive Symptoms: Increased Anxiety and Insomnia Judgement: Fair Diagnostics Vital Signs (24Hr): Vital Signs - 24 hr 01/08/21 19:27 01/09/21 12:27 Pulse Rate 71 88 Blood Pressure 135/84 117/59 L Body Mass Index 30.4 Labs Results: 01/07/21 00:07 01/07/21 01:06 Labs: Laboratory Results - last 48 hr 01/08/21 01/08/21 01/08/21 08:06 08:06 08:06 Estimat Average Glucose 111 Hemoglobin A1c % 5.5 Magnesium 2.2 Iron 66 TIBC 311 % Saturation 21 Unsat Iron Binding 245 Triglycerides 99 Cholesterol 154 LDL Cholesterol, Calc 106 HDL Cholesterol 29 Vitamin B12 1083 H Folate 15.2 TSH 1.78 Free T4 1.05 Medications Medications Current Medications Acetaminophen (Acetaminophen 325 Mg Tablet) 650 mg PO Q6H PRN PRN Reason: Headache/Pain Mild Scale (1-3) Al Hydroxide/Mg Hydroxide (Magnesium Hydrox/Alum Hydrox 30 Ml Oral.Susp) 30 ml PO Q6H PRN PRN Reason: Heartburn/Nausea Clonidine HCl (Clonidine Hcl 0.1 Mg Tablet) 0.1 mg PO TID PRN; Protocol PRN Reason: withdrawal Last Admin: 01/09/21 12:27 Dose: 0.1 mg Documented by: Lorazepam (Lorazepam 1 Mg Tablet) 1 mg PO Q4H PRN PRN Reason: withdrawal Last Admin: 01/09/21 17:48 Dose: 1 mg Documented by: Magnesium Hydroxide (Milk Of Magnesia 30 Ml Oral.Susp) 30 ml PO DAILY PRN PRN Reason: Constipation Methadone HCl (Methadone Hcl 20 Mg/2 Ml Oral.Conc) 60 mg PO DAILY [facility] Last Admin: 01/09/21 09:08 Dose: 60 mg Documented by: Multivitamins/Vitamin C (Multivitamin Tablet) 1 tab PO DAILY [facility] Last Admin: 01/09/21 09:08 Dose: 1 tab Documented by: Nicotine (Nicotine 21 Mg Patch.Td24) 21 mg TRANSDERMA DAILY [facility] Last Admin: 01/09/21 09:08 Dose: 21 mg Documented by: Nicotine Polacrilex (Nicotine Polacrilex 2 Mg Gum) 2 mg BUCCAL QID PRN PRN Reason: nicotine cravings Last Admin: 01/08/21 19:28 Dose: 2 mg Documented by: Omeprazole (Omeprazole 40 Mg Capsule.) 40 mg PO DAILY@0630 [facility] Last Admin: 01/09/21 09:08 Dose: 40 mg Documented by: Trazodone HCl (Trazodone Hcl 50 Mg Tablet) 50 mg PO BEDTIME PRN PRN Reason: Insomnia Allergies Allergies Allergy/AdvReac Type Severity Reaction Status Date / Time No Known Allergies Allergy Unverified 01/03/20 17:05 [No Known Allergies*] Assessment & Plan Assessment & Plan (1) Severe recurrent major depression: Status: Acute Code(s): F33.2 - Major depressive disorder, recurrent severe without psychotic features (2) Opioid use disorder, severe, dependence: Status: Acute Code(s): F11.20 - Opioid dependence, uncomplicated Assessment and Plan: 30 yo male to ER with mother and girlfriend with reports of SI with plan to OD. Pt broke 4 months of sobriety 9 months ago and has been increasing his volume of use in hopes of overdose and . Reports poor sleep and appetite, nightmares, guilt, fatigue, poor concentration and regret that his life has taken this turn. Today, pt able to meet and begin to share his perspective of symptoms and precipitants. Plan: Seroquel 50 mg hs Wellbutrin 75 mg am Depakote 250 mg bid Greater than 50% of the session was spent on counseling and/or coordination of care Reason for contiued inpatient stay Substantial Risk for: harm to self, inability to function and rapid decompensation
[2021-01-09] MEDS: Divalproex Sodium 250 MG TABLET.DR PO (20:18)
[2021-01-09] MEDS: QUEtiapine Fumarate 50 MG TABLET PO (20:18)
[2021-01-10] MEDS: methADONE HCl 20 MG/2 ML ORAL.CONC 60 MG PO (08:50)
[2021-01-10] MEDS: buPROPion HCL 75 MG TABLET PO (08:50)
[2021-01-10] MEDS: Omeprazole 40 MG CAPSULE.DR PO (08:50)
[2021-01-10] MEDS: Divalproex Sodium 250 MG TABLET.DR PO ×2 (08:50→20:30)
[2021-01-10] MEDS: Nicotine 21 MG PATCH.TD24 TRANSDERMA (08:50)
[2021-01-10] MEDS: Multivitamin TABLET 1 TAB PO (08:50)
--- NOTE | 2021-01-10 12:46 | HO.PSYCHPN ---
Subjective Subjective Date of Service: 01/10/21 Reason For Visit: major depression, opiate, cocaine use disorder Interim History: Patient lying in bed and remaining isolated most of the shift. Patient is not uncooperative but does not get out of bed and answers with few words. Patient reports that he remains depressed but denies any HI or SI. Client Account Specialist suggested increasing Wellbutrin to XL and 150 mg to better target depression to which pt agrees; patient says he has trouble sleeping and usually takes Seroquel 100 mg to which inspector automatic typewriter agrees increasing. He denies any other requests or complaints. Mental Status Exam Mental Status Exam Narrative: Patient Appearance:?Fatigued, desheveled Patient Orientation:?Person, Place, Time and Situation Level of Consciousness:?Alert Patient Behavior:?calm, moderately cooperative; adequate eye contact Mood Description:?Depressed Affect Description:?Flat Patient Cognition Impaired:?No Ability to Follow Directions:?fair Speech Pattern:?Spontaneous Speech Memory Description:?Episodic Impaired Hallucinations:?None Delusions:?Not Present Perceptual Disturbances:?Depersonalization and Derealization Thought Process:?goal directed Thought Content: on depression/treatment; denies SI or HI Depressive Symptoms:?Increased Anxiety and Insomnia Judgement/insight:?impaired Diagnostics Vital Signs (24Hr): Vital Signs - 24 hr 01/09/21 18:00 Temperature 98.5 F Pulse Rate 78 Blood Pressure 108/78 Body Mass Index 30.4 Labs Results: 01/07/21 00:07 01/07/21 01:06 Labs: Laboratory Results - last 48 hr 01/08/21 08:06 Iron 66 TIBC 311 % Saturation 21 Unsat Iron Binding 245 Medications Medications Current Medications Acetaminophen (Acetaminophen 325 Mg Tablet) 650 mg PO Q6H PRN PRN Reason: Headache/Pain Mild Scale (1-3) Al Hydroxide/Mg Hydroxide (Magnesium Hydrox/Alum Hydrox 30 Ml Oral.Susp) 30 ml PO Q6H PRN PRN Reason: Heartburn/Nausea Bupropion HCl (Bupropion Hcl 75 Mg Tablet) 75 mg PO DAILY [facility] Last Admin: 01/10/21 08:50 Dose: 75 mg Documented by: Clonidine HCl (Clonidine Hcl 0.1 Mg Tablet) 0.1 mg PO TID PRN; Protocol PRN Reason: withdrawal Last Admin: 01/09/21 12:27 Dose: 0.1 mg Documented by: Divalproex Sodium (Divalproex Sodium 250 Mg Tablet.) 250 mg PO BID [facility] Last Admin: 01/10/21 08:50 Dose: 250 mg Documented by: Lorazepam (Lorazepam 1 Mg Tablet) 1 mg PO Q4H PRN PRN Reason: withdrawal Last Admin: 01/09/21 17:48 Dose: 1 mg Documented by: Magnesium Hydroxide (Milk Of Magnesia 30 Ml Oral.Susp) 30 ml PO DAILY PRN PRN Reason: Constipation Methadone HCl (Methadone Hcl 20 Mg/2 Ml Oral.Conc) 60 mg PO DAILY [facility] Last Admin: 01/10/21 08:50 Dose: 60 mg Documented by: Multivitamins/Vitamin C (Multivitamin Tablet) 1 tab PO DAILY [facility] Last Admin: 01/10/21 08:50 Dose: 1 tab Documented by: Nicotine (Nicotine 21 Mg Patch.Td24) 21 mg TRANSDERMA DAILY [facility] Last Admin: 01/10/21 08:50 Dose: 21 mg Documented by: Nicotine Polacrilex (Nicotine Polacrilex 2 Mg Gum) 2 mg BUCCAL QID PRN PRN Reason: nicotine cravings Last Admin: 01/08/21 19:28 Dose: 2 mg Documented by: Omeprazole (Omeprazole 40 Mg Capsule.) 40 mg PO DAILY@0630 [facility] Last Admin: 01/10/21 08:50 Dose: 40 mg Documented by: Quetiapine Fumarate (Quetiapine Fumarate 50 Mg Tablet) 50 mg PO BEDTIME [facility] Last Admin: 01/09/21 20:18 Dose: 50 mg Documented by: Trazodone HCl (Trazodone Hcl 50 Mg Tablet) 50 mg PO BEDTIME PRN PRN Reason: Insomnia Allergies Allergies Allergy/AdvReac Type Severity Reaction Status Date / Time No Known Allergies Allergy Unverified 01/03/20 17:05 [No Known Allergies*] Assessment & Plan Assessment & Plan (1) Severe recurrent major depression: Status: Acute Code(s): F33.2 - Major depressive disorder, recurrent severe without psychotic features (2) Opioid use disorder, severe, dependence: Status: Acute Code(s): F11.20 - Opioid dependence, uncomplicated Assessment and Plan: Client Account Specialist covering 01/10 See medication changes below 30 yo male to ER with mother and girlfriend with reports of SI with plan to OD. Pt broke 4 months of sobriety 9 months ago and has been increasing his volume of use in hopes of overdose and . Reports poor sleep and appetite, nightmares, guilt, fatigue, poor concentration and regret that his life has taken this turn. Today, pt able to meet and begin to share his perspective of symptoms and precipitants. Plan: Seroquel 50 mg hs INCREASED TO Wellbutrin XL 150MG DAILY for continued depression INCREASED to Seroquel 100mg qhs (up from 50mg) for continued insomnia; took this dose in past Depakote 250 mg bid Greater than 50% of the session was spent on counseling and/or coordination of care Reason for contiued inpatient stay Substantial Risk for: rapid decompensation
[2021-01-10 13:43] VITALS: BP 117/86; PULSE 75
[2021-01-10] MEDS: LORazepam 1 MG TABLET PO ×2 (13:43→18:18)
[2021-01-10] MEDS: cloNIDine HCL 0.1 MG TABLET PO (13:43)
[2021-01-10] MEDS: Nicotine Polacrilex 2 MG GUM BUCCAL (13:43)
[2021-01-10 18:00] VITALS: BP 130/71; PULSE 88
[2021-01-10] MEDS: QUEtiapine Fumarate 100 MG TABLET PO (20:30)
[2021-01-11 08:30] VITALS: BP 136/74; PULSE 72; RESP 16; TEMP 36.8; O2SAT 96
[2021-01-11] MEDS: Nicotine 21 MG PATCH.TD24 TRANSDERMA (09:12)
[2021-01-11] MEDS: LORazepam 1 MG TABLET PO ×3 (09:13→20:11)
[2021-01-11] MEDS: Divalproex Sodium 250 MG TABLET.DR PO ×2 (09:13→20:07)
[2021-01-11] MEDS: methADONE HCl 20 MG/2 ML ORAL.CONC 60 MG PO (09:13)
[2021-01-11] MEDS: Multivitamin TABLET 1 TAB PO (09:13)
[2021-01-11] MEDS: Omeprazole 40 MG CAPSULE.DR PO (09:13)
[2021-01-11] MEDS: buPROPion HCl XL 150 MG TAB.ER.24H PO (09:13)
[2021-01-11 18:00] VITALS: BP 122/80; PULSE 86
--- NOTE | 2021-01-11 19:03 | HO.PSYCHPN ---
Subjective Subjective Date of Service: 01/11/21 Reason For Visit: major depression, opiate, cocaine use disorder Interim History: pt quiet, reticent; difficult to engage. He is still depressed; no SI. He says increase in Wellbutrin is fine; no side-effects. Pt says he slept better with increased Seroquel Mental Status Exam Mental Status Exam Narrative: Patient Appearance:?Fatigued, desheveled Patient Orientation:?Person, Place, Time and Situation Level of Consciousness:?Alert Patient Behavior:?calm, moderately cooperative; adequate eye contact Mood Description:?Depressed Affect Description:?Flat Patient Cognition Impaired:?No Ability to Follow Directions:?fair Speech Pattern:?Spontaneous Speech Memory Description:?Episodic Impaired Hallucinations:?None Delusions:?Not Present Perceptual Disturbances:?Depersonalization and Derealization Thought Process:?goal directed Thought Content: on depression/treatment; denies SI or HI Depressive Symptoms:?Increased Anxiety and Insomnia Judgement/insight:?impaired Diagnostics Vital Signs (24Hr): Vital Signs - 24 hr 01/11/21 08:30 Temperature 98.2 F Pulse Rate 72 Respiratory Rate 16 Blood Pressure 136/74 Pulse Oximetry 96 Body Mass Index 30.4 Labs Results: 01/07/21 00:07 01/07/21 01:06 Medications Medications Current Medications Acetaminophen (Acetaminophen 325 Mg Tablet) 650 mg PO Q6H PRN PRN Reason: Headache/Pain Mild Scale (1-3) Al Hydroxide/Mg Hydroxide (Magnesium Hydrox/Alum Hydrox 30 Ml Oral.Susp) 30 ml PO Q6H PRN PRN Reason: Heartburn/Nausea Bupropion HCl (Bupropion Hcl Xl 150 Mg Tab.Er.24h) 150 mg PO DAILY [facility] Last Admin: 01/11/21 09:13 Dose: 150 mg Documented by: Clonidine HCl (Clonidine Hcl 0.1 Mg Tablet) 0.1 mg PO TID PRN; Protocol PRN Reason: withdrawal Last Admin: 01/10/21 13:43 Dose: 0.1 mg Documented by: Divalproex Sodium (Divalproex Sodium 250 Mg Tablet.) 250 mg PO BID [facility] Last Admin: 01/11/21 09:13 Dose: 250 mg Documented by: Lorazepam (Lorazepam 1 Mg Tablet) 1 mg PO Q4H PRN PRN Reason: withdrawal Last Admin: 01/11/21 15:43 Dose: 1 mg Documented by: Magnesium Hydroxide (Milk Of Magnesia 30 Ml Oral.Susp) 30 ml PO DAILY PRN PRN Reason: Constipation Methadone HCl (Methadone Hcl 20 Mg/2 Ml Oral.Conc) 60 mg PO DAILY [facility] Last Admin: 01/11/21 09:13 Dose: 60 mg Documented by: Multivitamins/Vitamin C (Multivitamin Tablet) 1 tab PO DAILY [facility] Last Admin: 01/11/21 09:13 Dose: 1 tab Documented by: Nicotine (Nicotine 21 Mg Patch.Td24) 21 mg TRANSDERMA DAILY [facility] Last Admin: 01/11/21 09:12 Dose: 21 mg Documented by: Nicotine Polacrilex (Nicotine Polacrilex 2 Mg Gum) 2 mg BUCCAL QID PRN PRN Reason: nicotine cravings Last Admin: 01/10/21 13:43 Dose: 2 mg Documented by: Omeprazole (Omeprazole 40 Mg Capsule.Dr) 40 mg PO DAILY@0630 [facility] Last Admin: 01/11/21 09:13 Dose: 40 mg Documented by: Quetiapine Fumarate (Quetiapine Fumarate 100 Mg Tablet) 100 mg PO BEDTIME [facility] Last Admin: 01/10/21 20:30 Dose: 100 mg Documented by: Trazodone HCl (Trazodone Hcl 50 Mg Tablet) 50 mg PO BEDTIME PRN PRN Reason: Insomnia Allergies Allergies Allergy/AdvReac Type Severity Reaction Status Date / Time No Known Allergies Allergy Unverified 01/03/20 17:05 [No Known Allergies*] Assessment & Plan Assessment & Plan (1) Severe recurrent major depression: Status: Acute Code(s): F33.2 - Major depressive disorder, recurrent severe without psychotic features (2) Opioid use disorder, severe, dependence: Status: Acute Code(s): F11.20 - Opioid dependence, uncomplicated Assessment and Plan: Infusion Pharmacist covering 01/11 increased wellbutrin and changed to XL which pt says wants to continue increased Seroqeul qhs to 100mg which pt says helps w/ sleep otherwise, no changes to tx oplan 30 yo male to ER with mother and girlfriend with reports of SI with plan to OD. Pt broke 4 months of sobriety 9 months ago and has been increasing his volume of use in hopes of overdose and . Reports poor sleep and appetite, nightmares, guilt, fatigue, poor concentration and regret that his life has taken this turn. Today, pt able to meet and begin to share his perspective of symptoms and precipitants. Plan: Seroquel 50 mg hs INCREASED TO Wellbutrin XL 150MG DAILY for continued depression INCREASED to Seroquel 100mg qhs (up from 50mg) for continued insomnia; took this dose in past Depakote 250 mg bid Greater than 50% of the session was spent on counseling and/or coordination of care Reason for contiued inpatient stay Substantial Risk for: rapid decompensation
[2021-01-11] MEDS: QUEtiapine Fumarate 100 MG TABLET PO (20:09)
[2021-01-12 06:00] VITALS: BP 112/61; PULSE 80; RESP 14; TEMP 36.4; O2SAT 95
[2021-01-12] MEDS: Nicotine 21 MG PATCH.TD24 TRANSDERMA (09:05)
[2021-01-12] MEDS: Multivitamin TABLET 1 TAB PO (09:06)
[2021-01-12] MEDS: buPROPion HCl XL 150 MG TAB.ER.24H PO (09:06)
[2021-01-12] MEDS: methADONE HCl 20 MG/2 ML ORAL.CONC 60 MG PO (09:07)
[2021-01-12] MEDS: Divalproex Sodium 250 MG TABLET.DR PO ×2 (09:07→21:18)
[2021-01-12] MEDS: Omeprazole 40 MG CAPSULE.DR PO (09:07)
[2021-01-12] MEDS: LORazepam 1 MG TABLET PO (09:44)
[2021-01-12] MEDS: Nicotine Polacrilex 2 MG GUM BUCCAL ×2 (11:38→14:20)
--- NOTE | 2021-01-12 13:20 | HO.PSYCHPN ---
Subjective Subjective Date of Service: 01/12/21 Reason For Visit: major depression, opiate, cocaine use disorder Subjective Notes: Conditional Voluntary Interim History: Pt met with this functional tester typewriters and clinician Codey. Pt reports overall mood has significantly improved, that he feels less depressed, although continues to report some degree of anhedonia and traumatic experiences that he states he has not dealt with in the past. Pt reports he wants to continue methadone. He does not want to do CSS at this point, but open to IOP or PHP. He denies suicidal or homicidal ideation. No VH/AH. He reports sleeping and appetite are good. He has been more visible in the unit, social with select peers, encouraged to attend assigned groups. Medication Compliance: Yes Review of Systems Review of Systems Yes all other systems are reviewed and are negative and Unobtainable due to mental status Constitutional: Reports no additional constitutional complaints, Denies body ache(s), Denies chills, Denies fever(s), Denies headache(s) and Denies weakness Eyes: Reports no additional eye complaints and Denies change in vision Reports system reviewed and no additional complaints, except as documented, Denies dizziness, Denies headache(s), Denies nasal congestion, Denies nasal discharge and Denies neck pain Cardiovascular: Reports no additional cardiovascular complaints, Denies chest pain, Denies leg edema and Denies dyspnea Respiratory: Reports no additional respiratory complaints, Denies cough and Denies dyspnea Gastrointestinal: Reports no additional gastrointestinal complaints, Denies abdominal pain, Denies diarrhea, Denies nausea and Denies vomiting Genitourinary: Denies urinary incontinence Musculoskeletal: Reports no additional musculoskeletal complaints, Denies back pain, Denies arthralgias, Denies joint swelling, Denies neck pain, Denies numbness and Denies tingling Skin/Breast: Reports system reviewed and no additional complaints, except as docu and Denies rash Reports system reviewed and no additional complaints, except as documented, Denies Abnormal speech present, Reports behavioral changes, Denies dizziness, Denies headache(s), Denies numbness, Denies tingling and Denies weakness Psychiatric: Reports abnormal sleep pattern, Reports anxiety, Reports behavioral changes, Reports change in appetite, Reports depression, Reports difficulty concentrating, Reports hopelessness, Reports irritability, Reports anhedonia, Reports mood swings, Reports panic attacks, Denies homicidal ideation and Reports suicidal ideation Mental Status Exam Mental Status Exam Narrative: Appearance: casually groomed, fair hygiene in NAD Behavior:cooperative psychomotor: no agitation or retardation noted Speech:clear, normal rate/rhythm/volume, spontaneous Thought process:linear Thought content:no signs of psychosis, future oriented, looking to see GF Mood: better Affect: brighter, non labile SI:denies HI:denies VH/AH:none Delusions:none Insight/judgment:fair x 2. Memory/cog: alert, oriented x 3. grossly intact to conversational testing. Diagnostics Vital Signs (24Hr): Vital Signs - 24 hr 01/11/21 18:00 01/12/21 06:00 Temperature 97.6 F Pulse Rate 86 80 Respiratory Rate 14 Blood Pressure 122/80 112/61 Pulse Oximetry 95 Body Mass Index 30.4 Labs Results: 01/07/21 00:07 01/07/21 01:06 Medications Medications Current Medications Acetaminophen (Acetaminophen 325 Mg Tablet) 650 mg PO Q6H PRN PRN Reason: Headache/Pain Mild Scale (1-3) Al Hydroxide/Mg Hydroxide (Magnesium Hydrox/Alum Hydrox 30 Ml Oral.Susp) 30 ml PO Q6H PRN PRN Reason: Heartburn/Nausea Bupropion HCl (Bupropion Hcl Xl 150 Mg Tab.Er.24h) 150 mg PO DAILY [facility] Last Admin: 01/12/21 09:06 Dose: 150 mg Documented by: Clonidine HCl (Clonidine Hcl 0.1 Mg Tablet) 0.1 mg PO TID PRN; Protocol PRN Reason: withdrawal Last Admin: 01/10/21 13:43 Dose: 0.1 mg Documented by: Divalproex Sodium (Divalproex Sodium 250 Mg Tablet.) 250 mg PO BID [facility] Last Admin: 01/12/21 09:07 Dose: 250 mg Documented by: Magnesium Hydroxide (Milk Of Magnesia 30 Ml Oral.Susp) 30 ml PO DAILY PRN PRN Reason: Constipation Methadone HCl (Methadone Hcl 20 Mg/2 Ml Oral.Conc) 60 mg PO DAILY [facility] Last Admin: 01/12/21 09:07 Dose: 60 mg Documented by: Multivitamins/Vitamin C (Multivitamin Tablet) 1 tab PO DAILY [facility] Last Admin: 01/12/21 09:06 Dose: 1 tab Documented by: Nicotine (Nicotine 21 Mg Patch.Td24) 21 mg TRANSDERMA DAILY [facility] Last Admin: 01/12/21 09:05 Dose: 21 mg Documented by: Nicotine Polacrilex (Nicotine Polacrilex 2 Mg Gum) 2 mg BUCCAL QID PRN PRN Reason: nicotine cravings Last Admin: 01/12/21 11:38 Dose: 2 mg Documented by: Omeprazole (Omeprazole 40 Mg Capsule.) 40 mg PO DAILY@0630 [facility] Last Admin: 01/12/21 09:07 Dose: 40 mg Documented by: Quetiapine Fumarate (Quetiapine Fumarate 100 Mg Tablet) 100 mg PO BEDTIME [facility] Last Admin: 01/11/21 20:09 Dose: 100 mg Documented by: Trazodone HCl (Trazodone Hcl 50 Mg Tablet) 50 mg PO BEDTIME PRN PRN Reason: Insomnia Allergies Allergies Allergy/AdvReac Type Severity Reaction Status Date / Time No Known Allergies Allergy Unverified 01/03/20 17:05 [No Known Allergies*] Assessment & Plan Assessment & Plan (1) Severe recurrent major depression: Status: Acute Code(s): F33.2 - Major depressive disorder, recurrent severe without psychotic features (2) Opioid use disorder, severe, dependence: Status: Acute Code(s): F11.20 - Opioid dependence, uncomplicated Assessment and Plan: Head Of Loss Prevention covering 01/11 increased wellbutrin and changed to XL which pt says wants to continue increased Seroqeul qhs to 100mg which pt says helps w/ sleep otherwise, no changes to tx oplan 30 yo male to ER with mother and girlfriend with reports of SI with plan to OD. Pt broke 4 months of sobriety 9 months ago and has been increasing his volume of use in hopes of overdose and . Reports poor sleep and appetite, nightmares, guilt, fatigue, poor concentration and regret that his life has taken this turn. Today, pt able to meet and begin to share his perspective of symptoms and precipitants. Plan: Seroquel 50 mg hs Continue Wellbutrin XL 150MG DAILY for continued depression Continue Seroquel 100mg qhs (up from 50mg) for continued insomnia/mood; took this dose in past Depakote 250 mg bid- check levels Greater than 50% of the session was spent on counseling and/or coordination of care Reason for contiued inpatient stay Substantial Risk for: harm to self
[2021-01-12 14:17] VITALS: BP 112/73; PULSE 101
[2021-01-12] MEDS: cloNIDine HCL 0.1 MG TABLET PO ×2 (14:17→20:04)
[2021-01-12 17:35] VITALS: BP 115/73; PULSE 77; TEMP 36.4; O2SAT 97
[2021-01-12 20:04] VITALS: BP 125/81; PULSE 75
[2021-01-12] MEDS: QUEtiapine Fumarate 100 MG TABLET PO (21:18)
[2021-01-13 06:00] VITALS: BP 100/55; PULSE 55; RESP 16; TEMP 36.2; O2SAT 96
[2021-01-13] MEDS: Omeprazole 40 MG CAPSULE.DR PO (06:52)
[2021-01-13] MEDS: buPROPion HCl XL 150 MG TAB.ER.24H PO (09:50)
[2021-01-13] MEDS: methADONE HCl 20 MG/2 ML ORAL.CONC 60 MG PO (09:50)
[2021-01-13] MEDS: Divalproex Sodium 250 MG TABLET.DR PO (09:50)
[2021-01-13] MEDS: Multivitamin TABLET 1 TAB PO (09:50)
[2021-01-13] MEDS: Nicotine 21 MG PATCH.TD24 TRANSDERMA (09:50)
[2021-01-13] MEDS: Nicotine Polacrilex 2 MG GUM BUCCAL (12:01)
[2021-01-13] MEDS: cloNIDine HCL 0.1 MG TABLET PO (12:39)
--- NOTE | 2021-01-13 13:15 | PC.NURSE ---
Patient alert and oriented. Dressed appropriately for discharge. All DC paperwork reviewd with patient including Medications, follow up appointments. Patient verbalized understanding of all instructions. Patient endorsed anxiety of 8/10 during dc process and was medicated with clonidine prior to dc. Patient was accompanied to front of hospital by RN.
--- NOTE | 2021-02-08 11:37 | P.DS_ITS ---
DS: Providers Provider Date of Service: 01/13/21 <Amanda Belcher [employer] - Last Filed: 02/08/21 11:42> Date of admission: 01/07/21 15:20 <Amanda Belcher [employer] - Last Filed: 02/08/21 11:42> Date of discharge: 01/13/21 <Amanda Belcher, [employer] - Last Filed: 02/08/21 11:42> Primary care physician: Kendrick Barnes MD <Amanda Belcher, [employer] - Last Filed: 02/08/21 11:42> Admitting clinician: Amanda Belcher <Amanda Belcher, [employer] - Last Filed: 02/08/21 11:42> Attending physician on admission: Giovani Napier <Amanda Belcher, [employer] - Last Filed: 02/08/21 11:42> Attending physician on discharge: Giovani Napier <Amanda Belcher, [employer] - Last Filed: 02/08/21 11:42> Discharging clinician: Amanda Belcher <Amanda Belcher, [employer] - Last Filed: 02/08/21 11:42> DS: Diagnosis Discharge Diagnosis (1) Severe recurrent major depression: Status: Acute <Amanda Belcher [employer] - Last Filed: 02/08/21 11:42> (2) Opioid use disorder, severe, dependence: Status: Acute <Amanda Belcher, [employer] - Last Filed: 02/08/21 11:42> DS: Medications Discharge Medications Home Medications: Home Medications Medication Instructions Recorded Confirmed methadone 10 mg/mL oral 60 mg PO DAILY 01/06/21 01/20/21 concentrate (Methadone Intensol) clonidine HCl 0.1 mg tablet 1 tab PO TID 01/15/21 01/19/21 multivitamin 1 tab PO DAILY 01/15/21 01/19/21 omeprazole 40 mg capsule,delayed 1 cap PO DAILY 01/15/21 01/19/21 release Previous Rx's Medication Instructions Recorded bupropion HCl 300 mg 24 hr tablet, 300 mg PO DAILY #1 tab NS 01/22/21 extended release divalproex 500 mg tablet,delayed 500 mg PO BID #1 tab 01/22/21 release quetiapine 50 mg tablet 150 mg PO BEDTIME #3 tab 01/22/21 <Amanda Belcher APRN - Last Filed: 02/08/21 11:42> Mental Status Exam Mental Status Exam Narrative: Appearance: casually groomed, fair hygiene in NAD Behavior:cooperative psychomotor: no agitation or retardation noted Speech:clear, normal rate/rhythm/volume, spontaneous Thought process:linear Thought content:no signs of psychosis, future oriented, looking to see GF Mood: better Affect: brighter, non labile SI:denies HI:denies VH/AH:none Delusions:none Insight/judgment:fair x 2. Memory/cog: alert, oriented x 3. grossly intact to conversational testing. <Amanda Belcher APRN - Last Filed: 02/08/21 11:42> DS: Summary Hospital Course Hospital Course: Pt admitted on a conditional voluntary status. He was assisted with withdrawal and re-established on a medication regime for depression. The nursing and social service teams worked to establish and aftercare plan that he approved of. <Amanda Belcher APRN - Last Filed: 02/08/21 11:42> Status at Discharge Cognitive/behavioral status at discharge: alert, oriented, non-psychotic, non-suicidal <Amanda Belcher APRN - Last Filed: 02/08/21 11:42> Functional status at discharge: independent ambulation <Amanda Belcher APRN - Last Filed: 02/08/21 11:42> Overall status at discharge: patient is progressing back to baseline <Amanda Belcher APRN - Last Filed: 02/08/21 11:42> Time Spent with Patient Time attestation: Total time spent providing and/or coordinating discharge services: 35 <Amanda Belcher APRN - Last Filed: 02/08/21 11:42> Time spent: Greater than 30 minutes <Amanda Belcher APRN - Last Filed: 02/08/21 11:42> Discharge Plan Discharge Patient Disposition: Home, Self-Care <Amanda Belcher APRN - Last Filed: 02/08/21 11:42> Discharge Diagnosis: MDD, recurrent, moderate Polysubstance Use disorder <Amanda Belcher APRN - Last Filed: 02/08/21 11:42> MDD, recurrent, moderate Polysubstance Use disorder <Giovani Napier MD - Last Filed: 02/10/21 14:24> Referrals: Yudy Schwartz [Other] - 01/19/21 2:00 pm ([facility] program Appointment post discharge Patient appointment with clinician, Yudy Schwartz, 01/19/21 at 2:00pm) [facility] [Other] - 1 Day (Patient to follow-up with MAT treatment program following discharge from [facility]. Patient needs to bring discharge paperwork to appointment.) Kendrick Barnes MD [Primary Care Provider] - 1 Week <Amanda Belcher APRN - Last Filed: 02/08/21 11:42> Discharge Medications: Continued methadone [Methadone Intensol] 10 mg/mL Concentrate 60 mg PO DAILY RF: 0 No Action multivitamin Tablet 1 tab PO DAILY RF: 0 clonidine HCl 0.1 mg tablet 1 tab PO TID RF: 0 omeprazole 40 mg capsule,delayed release(DR/EC) 1 cap PO DAILY RF: 0 divalproex 500 mg Tablet,Delayed Release (Dr/Ec) 500 mg PO BID Qty: 1 RF: 0 bupropion HCl 300 mg Tablet Extended Release 24 Hr 300 mg PO DAILY Qty: 1 RF: 0 quetiapine 50 mg Tablet 150 mg PO BEDTIME Qty: 3 RF: 0 <Amanda Belcher APRN - Last Filed: 02/08/21 11:42> Discharge Orders: Discharge Order (Routine); Ordered 01/13/21 Ordered By: Leda Ching <Amanda Belcher APRN - Last Filed: 02/08/21 11:42> Diet: regular diet <Amanda Belcher APRN - Last Filed: 02/08/21 11:42> regular diet <Giovani Napier MD - Last Filed: 02/10/21 14:24> Activity on Discharge: As tolerated <Amanda Belcher APRN - Last Filed: 02/08/21 11:42> As tolerated <Giovani Napier MD - Last Filed: 02/10/21 14:24> Stand Alone Forms: Patient Portal Discharge page <Amanda Belcher APRN - Last Filed: 02/08/21 11:42> Care Plan Goals: 1. Maintain mood 2. No SI/HI 3. Harm reduction- narcan take home <Amanda Belcher APRN - Last Filed: 02/08/21 11:42> Health Concerns: 1. Follow up with PCP <Amanda Belcher APRN - Last Filed: 02/08/21 11:42> Plan of Treatment: 1. Take medications as prescribed. 2. Go to nearest ED or call 911 in event of emergency <Amanda Belcher APRN - Last Filed: 02/08/21 11:42> Assessment: No SI/HI. Brighter mood, decreased depressed mood. <Amanda Belcher APRN - Last Filed: 02/08/21 11:42> Discharge Date/Time: 01/13/21 12:50 <Amanda Belcher APRN - Last Filed: 02/08/21 11:42>
== END 2021-01-13 12:50 | disposition home or self-care (01) | DRG 751 ==
LOC: HO.ED 01-07 10:11 → HO.PM5 01-07 15:30
PROVIDERS: Nurse Practitioner Family; Admitting Provider Psychiatry & Neurology Psychiatry; Emergency Provider Emergency Medicine Emergency Medical Services; PCP Internal Medicine; Visit Provider Clinical Nurse Specialist Psychiatric/Mental Health, Adult
DX: F33.2 Major depressive disorder, recurrent severe without psychotic features (principal); R45.851 Suicidal ideations; F11.20 Opioid dependence, uncomplicated; F17.210 Nicotine dependence, cigarettes, uncomplicated; Z71.6 Tobacco abuse counseling; Z20.822 Contact with and (suspected) exposure to COVID-19; Z79.899 Other long term (current) drug therapy
CPT/HCPCS: 36415; 80048; 80061; 80076; 80307; 81001; 82077; 82607; 82746; 83036; 83540; 83735; 84439; 84443; 85025; 87635; 93005; 99285

== ENCOUNTER 2021-01-15 20:46 | Emergency (ER) | payer OTHER, SELFPAY ==
[2021-01-15 21:07] VITALS: BP 142/89; PULSE 108; RESP 20; TEMP 36.7; O2SAT 99; BMI 30.4
--- NOTE | 2021-01-15 21:08 | ED.PSYCH ---
HPI - Psych General Chief Complaint: Psychiatric Symptoms Stated Complaint: Requested Psych Hector, PT was here recently Time Seen by Provider: 01/15/21 21:01 Source: patient Mode of arrival: ambulatory Limitations: no limitations History of Present Illness HPI Narrative: Patient history of depression substance abuse using cocaine and heroin was recently admitted 01/08-01/12 to psych floor, comes back is not able to manage depression felt suicidal without any plan asking for some help, patient thinks depression is the main reason not to substance abuse. Thought process is coherent reported compliant with his medication which were started last week Related Data Home Medications Medication Instructions Recorded Confirmed methadone 10 mg/mL oral 60 mg PO DAILY 01/06/21 01/07/21 concentrate (Methadone Intensol) bupropion HCl 150 mg 24 hr tablet, 1 tab PO QAM 01/15/21 01/15/21 extended release clonidine HCl 0.1 mg tablet 1 tab PO TID 01/15/21 01/15/21 divalproex 250 mg tablet,delayed 1 tab PO BID 01/15/21 01/15/21 release multivitamin 1 tab PO DAILY 01/15/21 01/15/21 nicotine 21 mg/24 hr daily 1 patch TOPICAL QAM 01/15/21 01/15/21 transdermal patch omeprazole 40 mg capsule,delayed 1 cap PO DAILY 01/15/21 01/15/21 release quetiapine 100 mg tablet 1 tab PO BEDTIME 01/15/21 01/15/21 Allergies Allergy/AdvReac Type Severity Reaction Status Date / Time No Known Allergies Allergy Unverified 01/03/20 17:05 [No Known Allergies*] Review of Systems Review of Systems: Constitutional : No Fever, No Chills ENT/Mouth : No Ear Pain, No Nasal Congestion, No sore throat Eyes: No Eye Pain, No Swelling, No Redness Cardiovascular : No Chest Pain, No SOB Respiratory : No Cough, No Sputum, No Dyspnea Gastrointestinal : No Nausea, No Vomiting, No Diarrhea, No Hematochezia, No Melena Genitourinary : No Dysuria, No Urinary Frequency, No Hematuria Musculoskeletal : No Myalgias Skin : No Skin Lesions, No rash Neuro : No Weakness, No Numbness, No Paresthesias, No Dizziness, No Headache Psych : positive Anxiety, positive Depression, positive SI Heme/Lymph: No Lymphadenopathy Endocrine : No Polyuria, No Polydipsia PMFSH Past Medical History Medical History Anxiety Depressed Opioid use disorder, severe, dependence Severe recurrent major depression Social History Social History Household Members: Other Household Members Other:: Mother Housing: House Do you presently have visiting nurse or other home services: No Patient Tobacco Use Status: Current everyday Tobacco user Tobacco use type: Cigarette Cigarette Packs Per Day: 2 Cigarettes Per Day: 40.0 e-Cigarette/Vaping Use: Currently Using Second Hand Smoke Exposure: No Substance Use Type: Crack/Cocaine, Opiates and Other Advance Directives: No Advance Directives Information Provided: Yes service: No Sexual orientation: Straight/Heterosexual Physical Exam Vital Signs: Vital Signs: Last Vital Signs Temp 98.2 F 01/16/21 00:27 Pulse 96 01/16/21 00:52 Resp 17 01/16/21 00:27 BP 115/69 01/16/21 00:52 Pulse Ox 96 01/16/21 00:27 Body Mass Index 30.4 Appearance: Alert. Oriented X3. No acute distress. Eyes: PERRLA, no pallor /icterus ENT: Pharynx normal. Oral Mucosa moist Neck: Normal inspection. Neck supple. CVS: Normal heart rate and rhythm. Pulses normal. Respiratory: No respiratory distress. Equal air entry bilateral, no wheezing/rales/rhonchi Abdomen: Soft and nontender. Bowel sounds are present, no mass palpable, no CVA tenderness Skin: Skin warm and dry. Normal skin color. Normal skin turgor. Extremities: No lower extremity edema. No calf tenderness IVDA track canales+ psych: Mood is stable no current suicidal ideation no hallucination or delusion, thought process fair Neuro: Oriented X 3. No motor deficit. No sensory deficit.No cerebellar signs , cranial nerves II-XII intact MDM - Psych MDM Narrative Medical decision making narrative: Patient with major depressive disorder with substance abuse feels suicidal will get crisis evaluation plan for admission Medical Records Attestation: I reviewed the patient's medical records. Lab Data Attestation: I reviewed the patient's lab results. Labs: Lab Results 01/15/21 01/15/21 01/15/21 Range/Units 21:24 22:45 23:47 Urine Opiates Screen POSITIVE H (Not Detect) Urine Fentanyl Screen POSITIVE H (Not Detect) Ur Barbiturates Screen Not Detected (Not Detect) Valproic Acid 21.9 L (50.0-100.0) mcg/mL Ur Phencyclidine Scrn Not Detected (Not Detect) Ur Amphetamines Screen Not Detected (Not Detect) U Benzodiazepines Scrn Not Detected (Not Detect) Urine Cocaine Screen POSITIVE H (Not Detect) U Marijuana (THC) Screen Not Detected (Not Detect) Ethyl Alcohol mg/dL COVID-19 ([facility]) Negative (Negative) COVID-19 Clin Com See Note 01/15/21 Range/Units 23:47 Urine Opiates Screen (Not Detect) Urine Fentanyl Screen (Not Detect) Ur Barbiturates Screen (Not Detect) Valproic Acid (50.0-100.0) mcg/mL Ur Phencyclidine Scrn (Not Detect) Ur Amphetamines Screen (Not Detect) U Benzodiazepines Scrn (Not Detect) Urine Cocaine Screen (Not Detect) U Marijuana (THC) Screen (Not Detect) Ethyl Alcohol < 10 mg/dL COVID-19 ([facility]) (Negative) COVID-19 Clin Com Discharge Plan Discharge Clinical Impression: Suicidal ideation, Opioid use disorder, severe, dependence Depression Qualifiers: Depression Type: major depressive disorder Major depression recurrence: recurrent Active/Remission status: currently active Major depression episode severity: severe Psychotic features: without psychotic features Qualified Code(s): F33.2 - Major depressive disorder, recurrent severe without psychotic features Prescriptions: No Action methadone [Methadone Intensol] 10 mg/mL Concentrate 60 mg PO DAILY RF: 0 multivitamin Tablet 1 tab PO DAILY RF: 0 clonidine HCl 0.1 mg tablet 1 tab PO TID RF: 0 divalproex 250 mg tablet,delayed release (DR/EC) 1 tab PO BID RF: 0 omeprazole 40 mg capsule,delayed release(DR/EC) 1 cap PO DAILY RF: 0 quetiapine 100 mg tablet 1 tab PO BEDTIME RF: 0 nicotine 21 mg/24 hr patch 24 hour 1 patch topical QAM RF: 0 bupropion HCl 150 mg tablet extended release 24 hr 1 tab PO QAM RF: 0
[2021-01-15] MEDS: LORazepam 1 MG TABLET 2 MG PO (22:29)
[2021-01-15 22:30] LABS: COVID-19 Test Negative (Negative)
[2021-01-15 23:08] LABS: Amphetamine Screen Urine Not Detected (Not Detect); Barbiturates, Urine Not Detected (Not Detect); Benzodiazepines Screen Urine Not Detected (Not Detect); Cannabinoid Screen Urine Not Detected (Not Detect); Cocaine Screen Urine POSITIVE (Not Detect); Fentanyl, urine POSITIVE (Not Detect); Opiate Screen Urine POSITIVE (Not Detect); Phencyclidine Screen Urine Not Detected (Not Detect)
[2021-01-16 00:26] LABS: Ethanol < 10 mg/dL
[2021-01-16 00:27] VITALS: BP 115/69; PULSE 94; RESP 17; TEMP 36.8; O2SAT 96
[2021-01-16 00:46] LABS: Valproate 21.9 mcg/mL (50.0-100.0)
[2021-01-16 00:52] VITALS: BP 115/69; PULSE 96
[2021-01-16] MEDS: cloNIDine HCL 0.1 MG TABLET PO ×3 (00:52→14:09)
[2021-01-16] MEDS: QUEtiapine Fumarate 100 MG TABLET PO (00:53)
[2021-01-16] MEDS: Divalproex Sodium 250 MG TABLET.DR PO ×2 (00:53→09:30)
[2021-01-16] MEDS: Omeprazole 40 MG CAPSULE.DR PO (06:34)
--- NOTE | 2021-01-16 06:49 | PC.NURSE ---
Patient finally went to bed at 0415, sleeping since then, patient compliant with his medication, behavior appropriate , no distress observed/reported, N referral completed and confirmed, patient will be seen in the morning, will continue to monitor,
--- NOTE | 2021-01-16 07:03 | PC.NURSE ---
patient appears to remain asleep at present, respirations are even and unlabored, patient appears in no distress
[2021-01-16 09:30] VITALS: BP 115/69; PULSE 96
[2021-01-16] MEDS: Multivitamin TABLET 1 TAB PO (09:30)
[2021-01-16] MEDS: Nicotine 21 MG PATCH.TD24 TRANSDERMA (09:30)
[2021-01-16 09:43] VITALS: BP 106/57; PULSE 73; RESP 16; TEMP 36.6
[2021-01-16] MEDS: buPROPion HCl XL 150 MG TAB.ER.24H PO (09:47)
--- NOTE | 2021-01-16 10:51 | MHC.RECOVSUP ---
? Reason for consult:Continuity of care o Current location:[facility] o Identified substance use concern: Heroine& Cocaine - Support ? Intervention: o Community resources provided o Harm reduction discussion ? Plan: o Patient to follow up with [facility] after discharge ? Additional information: Pt. refusing detox and EATS.
[2021-01-16] MEDS: methADONE HCl 20 MG/2 ML ORAL.CONC 60 MG PO (11:44)
--- NOTE | 2021-01-16 12:43 | MHC.CARE ---
Reviewed pt file.? Pt was here in patient from 01/08-01/12.? CARE Team spoke with SUGAR CANE PLANTER MACHINE OPERATOR Leda Ching, who discharged pt.? She stated that pt appeared to be responding well to medication adjustments and was brightening.? He was agreeable to IOP but suddenly changed his thoughts regarding IOP.? SUGAR CANE PLANTER MACHINE OPERATOR Jeane stated that he had posted up by the entrance to the unit and began demanding to leave.? She suspects drug cravings were the cause of this.? Pt was then discharged. Contacted pt?s Mother, Ms. Carol Molina.? Pt still lives with his Mother and has stable housing.? Pt?s Mother stated that she believes he left the unit too early.? Hours after returning home, pt slipped into a depression, she stated that the only way he thinks he can get out from under his addiction is to .? Pt has a history of detox, most recently he was section [facility]? Department after which he was discharged to a sober living home and according to his Mother he did extremely well.? The pandemic had a negative impact on his recovery and he soon moved back home and began using again. Pt was working while at the sober living home. During the pandemic, when someone at the home would test positive for Covid, pt would have to quarantine for 2 weeks.? Pt was concerned that he would lose his job because of the frequent need to quarantine so he moved back home with his Mother which was when he started using again. CARE Team met with pt who stated that he left the unit prematurely.? He stated that he was ?antsy? and wanted to leave.? When asked if his premature departure was related to drug cravings, he stated that it was.? Pt stated that he returned because he felt ?Safer here?, and that ?I really want to be on the psych zepeda?.? He reports ?Severe depression? and ?Suicidal thoughts?, when asked what his plan was, he paused for a lengthy period of time before answering ?Overdose??? This answer was stated more as a question than as a statement. Pt is moderately engaged in the assessment and is assessed in his room in the behavioral health Pod of the [facility] ED.? He is alert and oriented x4, denies AVH, and HI.? He does not appear delusional or psychotic. He reports his mood as ?Severely depressed, his affect is flat.? He does state he is experiencing suicidal thoughts. Pt is help seeking but stated he only wants to go inpatient here, stating his addiction is not the problem, his depression is.? Pt does not appear to meet the criteria for in patient admission. CARE Team meets with Recovery Team regarding pt.? Hand I Cutter met with pt to offer EATs and/or detox.? Pt declined all recovery resources. CARE TEAM consults with womens health nurse practitioner psychiatrist Dr. Nye on this case.? CARE Team made the recommendation for discharge due to the findings of the assessment.? Dr. Nye is in agreement. CARE Team meets with pt and discusses the plan for discharge as he has declined the Recovery Team resources and does not meet inpatient criteria.? CARE Team asks that pt reconsider Recovery resources and provides education related to the benefit of those resources.? Pt declines reconsidering his decision and asks for a list of resources he can explore on his own. The plan is for pt to be discharged home with resources he can follow up with on his own.? This disposition was discussed with and agreed upon by consulting psychiatrist Dr. Nye, ED provider oCncha Bautista, and pt?s nurse RN Gayatri Rai.
[2021-01-16 14:09] VITALS: BP 106/57; PULSE 73
== END 2021-01-16 15:01 | disposition home or self-care (01) ==
PROVIDERS: Emergency Provider Internal Medicine; PCP Internal Medicine
DX: F33.1 Major depressive disorder, recurrent, moderate (principal); R45.851 Suicidal ideations; F11.20 Opioid dependence, uncomplicated; F41.9 Anxiety disorder, unspecified; Z20.822 Contact with and (suspected) exposure to COVID-19; F17.210 Nicotine dependence, cigarettes, uncomplicated; Z71.6 Tobacco abuse counseling; Z79.899 Other long term (current) drug therapy
CPT/HCPCS: 36415; 80164; 80307; 82077; 87635; 99284; 99285

== ENCOUNTER 2021-01-19 21:13 | Inpatient (IN) | payer OTHER, SELFPAY ==
[2021-01-19 22:17] VITALS: BP 105/69; PULSE 79; RESP 16; TEMP 36.6; O2SAT 95; BMI 30.4
--- NOTE | 2021-01-19 23:02 | ED.PSYCH ---
HPI - Psych General Chief Complaint: Psychiatric Symptoms <Pam Garcia NP - Last Filed: 01/20/21 01:16> Stated Complaint: PT requested psych zepeda <Pam Garcia NP - Last Filed: 01/20/21 01:16> Time Seen by Provider: 01/19/21 23:55 <Pam Garcia NP - Last Filed: 01/20/21 01:16> Source: patient <Pam Garcia NP - Last Filed: 01/20/21 01:16> Mode of arrival: ambulatory <Pam aGrcia NP - Last Filed: 01/20/21 01:16> Limitations: no limitations <Pam Garcia NP - Last Filed: 01/20/21 01:16> History of Present Illness HPI Narrative: 30-year-old male presents with suicidal ideation and depression. States to have used heroin approximately 2 days ago. Is not interested in detox at this time. He does not have any other physical complaints. <Pam Garcia NP - Last Filed: 01/20/21 01:16> MD complaint: suicidal ideation, feels depressed and substance abuse <Pam Garcia NP - Last Filed: 01/20/21 01:16> Duration: constant <Pam Garcia NP - Last Filed: 01/20/21 01:16> History of same: Yes <Pam Garcia NP - Last Filed: 01/20/21 01:16> Relieving factors: none <Pam Garcia NP - Last Filed: 01/20/21 01:16> Exacerbating factors: drug use <Pam Garcia NP - Last Filed: 01/20/21 01:16> Context: recent drug abuse <Pam Garcia NP - Last Filed: 01/20/21 01:16> Associated psychiatric symptoms: depression and suicidal ideation <Pam Garcia NP - Last Filed: 01/20/21 01:16> Associated symptoms: denies other symptoms <Pam Garcia NP - Last Filed: 01/20/21 01:16> Treatments prior to arrival: none <Pam Garcia NP - Last Filed: 01/20/21 01:16> If self harm: admits thoughts of self harm <JEREMY Moreno Last Filed: 01/20/21 01:16> Related Data Home Medications: Home Medications Medication Instructions Recorded Confirmed methadone 10 mg/mL oral 60 mg PO DAILY 01/06/21 01/20/21 concentrate (Methadone Intensol) bupropion HCl 150 mg 24 hr tablet, 1 tab PO QAM 01/15/21 01/19/21 extended release clonidine HCl 0.1 mg tablet 1 tab PO TID 01/15/21 01/19/21 divalproex 250 mg tablet,delayed 1 tab PO BID 01/15/21 01/19/21 release multivitamin 1 tab PO DAILY 01/15/21 01/19/21 nicotine 21 mg/24 hr daily 1 patch TOPICAL QAM 01/15/21 01/19/21 transdermal patch omeprazole 40 mg capsule,delayed 1 cap PO DAILY 01/15/21 01/19/21 release quetiapine 100 mg tablet 1 tab PO BEDTIME 01/15/21 01/19/21 <JEREMY Moreno Last Filed: 01/20/21 01:16> Allergies/Adverse Reactions: Allergies Allergy/AdvReac Type Severity Reaction Status Date / Time No Known Allergies Allergy Verified 01/19/21 22:17 [No Known Allergies*] <JEREMY Moreno Last Filed: 01/20/21 01:16> Review of Systems Review of Systems: Constitutional: No Fever, No Chills ENT/Mouth: No sore throat, No Rhinorrhea Eyes: No Eye Pain, No Swelling, No Redness Cardiovascular: No Chest Pain, No SOB Respiratory: No Cough, No Sputum Gastrointestinal: No Nausea, No Vomiting, No Diarrhea, No abdominal Pain Genitourinary: No Dysuria, No Hematuria Musculoskeletal: No joint pain, No Myalgias, No Joint Swelling Skin: No Skin Lesions, No rash Neuro: No Weakness, No Numbness, No Loss of Consciousness, No Dizziness, No Headache Psych: No Anxiety, positive heroin abuse, positive Depression, positive SI, no HI, no AH, no VH Heme/Lymph: No Bruising, No Bleeding,No Lymphadenopathy Endocrine: No Polyuria, No Polydipsia <JEREMY Moreno Last Filed: 01/20/21 01:16> Yes all other systems are reviewed and are negative <Pam Garcia NP - Last Filed: 01/20/21 01:16> [facility] Past Medical History Attestation statement: The following information was validated with the patient. <Pam Garcia NP - Last Filed: 01/20/21 01:16> Source: old records reviewed <Pam Garcia NP - Last Filed: 01/20/21 01:16> Medical History: Medical History Anxiety Depressed Opioid use disorder, severe, dependence Severe recurrent major depression <Pam Garcia NP - Last Filed: 01/20/21 01:16> Social History Social History: Social History Household Members: Other Household Members Other:: Mother Housing: House Do you presently have visiting nurse or other home services: No Patient Tobacco Use Status: Current everyday Tobacco user Tobacco use type: Cigarette Cigarette Packs Per Day: 2 Cigarettes Per Day: 40.0 e-Cigarette/Vaping Use: Currently Using Second Hand Smoke Exposure: No Substance Use Type: Crack/Cocaine, Opiates and Other Advance Directives: No Advance Directives Information Provided: Yes service: No Sexual orientation: Straight/Heterosexual <Pam Garcia NP - Last Filed: 01/20/21 01:16> Physical Exam Vital Signs: Vital Signs: Last Vital Signs Temp 97.9 F 01/19/21 23:51 Pulse 68 01/20/21 02:12 Resp 17 01/19/21 23:51 BP 117/80 01/20/21 02:12 Pulse Ox 96 01/19/21 23:51 Body Mass Index 30.4 <Pam Garcia NP - Last Filed: 01/20/21 01:16> Vital Signs: Last Vital Signs Temp 97.9 F 01/19/21 23:51 Pulse 68 01/20/21 02:12 Resp 17 01/19/21 23:51 BP 117/80 01/20/21 02:12 Pulse Ox 96 01/19/21 23:51 Body Mass Index 30.4 <EROS Ramos - Last Filed: 01/20/21 09:34> Appearance: Alert. Oriented X3. No acute distress. Eyes: Pupils equal, round and reactive to light. ENT: Pharynx normal. Neck: Normal inspection. Neck supple. CVS: Normal heart rate and rhythm. Pulses normal. Respiratory: No respiratory distress. Breath sounds normal. Abdomen: Soft and nontender. Skin: Skin warm and dry. Normal skin color. Normal skin turgor. Extremities: No lower extremity edema. Gait well-balanced well coordinated. Neuro: No motor deficit. No sensory deficit. Cranial nerves 2-12 intact. <Pam Garcia NP - Last Filed: 01/20/21 01:16> Course Course Course Narrative: 30-year-old male presents with suicidal ideation and heroin abuse. States he is not interested in detox at this time. It is noted that he was admitted to approximately 2 weeks ago for similar circumstances I would not participate in daily activities. Also presented to the emergency department last week, with similar complaint and presentation. Was not interested in detox at that time. Will order TORRES, COVID and behavior health consult. Physician observation started at this time. Tox screen positive for opioids, fentanyl and cocaine. <Pam Garcia NP - Last Filed: 01/20/21 01:16> 30-year-old male presents with suicidal ideation and heroin abuse. States he is not interested in detox at this time. It is noted that he was admitted to approximately 2 weeks ago for similar circumstances I would not participate in daily activities. Also presented to the emergency department last week, with similar complaint and presentation. Was not interested in detox at that time. Will order TORRES, COVID and behavior health consult. Physician observation started at this time, 1:15am. Tox screen positive for opioids, fentanyl and cocaine. <EROS Ramos - Last Filed: 01/20/21 09:34> Reevaluation(s) Reevaluation #1: Physician observation continued. Patient was seen by in and is currently an inpatient bed search. His methadone dosing has been confirmed and ordered. No acute overnight events. His vital signs remained stable. He is possibly planned to be admitted to a today. Will continue to monitor. <EROS Ramos - Last Filed: 01/20/21 09:34> MDM - Psych Differential Diagnosis Differential diagnosis: Likely suicidal ideation, depression and substance abuse <Pam Garcia NP - Last Filed: 01/20/21 01:16> Lab Data Attestation: I reviewed the patient's lab results. <Pam Garcia NP - Last Filed: 01/20/21 01:16> Labs: Lab Results 01/19/21 01/19/21 Range/Units 22:52 23:00 Urine Opiates Screen POSITIVE H (Not Detect) Urine Fentanyl Screen POSITIVE H (Not Detect) Ur Barbiturates Screen Not Detected (Not Detect) Ur Phencyclidine Scrn Not Detected (Not Detect) Ur Amphetamines Screen Not Detected (Not Detect) U Benzodiazepines Scrn Not Detected (Not Detect) Urine Cocaine Screen POSITIVE H (Not Detect) U Marijuana (THC) Screen Not Detected (Not Detect) COVID-19 (BERNARDO) Negative (Negative) COVID-[employer] Com See Note <Pam Garcia NP - Last Filed: 01/20/21 01:16> Lab Results 01/19/21 01/19/21 Range/Units 22:52 23:00 Urine Opiates Screen POSITIVE H (Not Detect) Urine Fentanyl Screen POSITIVE H (Not Detect) Ur Barbiturates Screen Not Detected (Not Detect) Ur Phencyclidine Scrn Not Detected (Not Detect) Ur Amphetamines Screen Not Detected (Not Detect) U Benzodiazepines Scrn Not Detected (Not Detect) Urine Cocaine Screen POSITIVE H (Not Detect) U Marijuana (THC) Screen Not Detected (Not Detect) COVID-19 ([place]ARDO) Negative (Negative) COVID-[employer] See Note <EROS Ramos - Last Filed: 01/20/21 09:34> Discharge Plan Discharge Clinical Impression: Suicidal ideation, Opioid use disorder, severe, dependence, Severe recurrent major depression <Pam Garcia NP - Last Filed: 01/20/21 01:16> Prescriptions: No Action methadone [Methadone Intensol] 10 mg/mL Concentrate 60 mg PO DAILY RF: 0 multivitamin Tablet 1 tab PO DAILY RF: 0 clonidine HCl 0.1 mg tablet 1 tab PO TID RF: 0 divalproex 250 mg tablet,delayed release (DR/EC) 1 tab PO BID RF: 0 omeprazole 40 mg capsule,delayed release(DR/EC) 1 cap PO DAILY RF: 0 quetiapine 100 mg tablet 1 tab PO BEDTIME RF: 0 nicotine 21 mg/24 hr patch 24 hour 1 patch topical QAM RF: 0 bupropion HCl 150 mg tablet extended release 24 hr 1 tab PO QAM RF: 0 <Pam Garcia ROLL CHANGER - Last Filed: 01/20/21 01:16>
[2021-01-19 23:11] LABS: COVID-19 Test Negative (Negative)
[2021-01-19 23:27] LABS: Amphetamine Screen Urine Not Detected (Not Detect); Barbiturates, Urine Not Detected (Not Detect); Benzodiazepines Screen Urine Not Detected (Not Detect); Cannabinoid Screen Urine Not Detected (Not Detect); Cocaine Screen Urine POSITIVE (Not Detect); Fentanyl, urine POSITIVE (Not Detect); Opiate Screen Urine POSITIVE (Not Detect); Phencyclidine Screen Urine Not Detected (Not Detect)
[2021-01-19 23:51] VITALS: BP 109/58; PULSE 74; RESP 17; TEMP 36.6; O2SAT 96
--- NOTE | 2021-01-20 | ECG_ITS ---
Test Reason : MEDCLEARANCE Blood Pressure : / mmHG Vent. Rate : 053 BPM Atrial Rate : 053 BPM P-R Int : 182 ms QRS Dur : 094 ms QT Int : 474 ms P-R-T Axes : 052 007 033 degrees QTc Int : 444 ms Sinus bradycardia Nonspecific ST abnormality Abnormal ECG When compared with ECG of 08-JAN-2021 09:55, No significant change was found Referred By: Anisha Singh Electronically Signed By:ERIN WATTERS
[2021-01-20 02:12] VITALS: BP 117/80; PULSE 68
[2021-01-20] MEDS: cloNIDine HCL 0.1 MG TABLET PO ×3 (02:12→21:25)
[2021-01-20] MEDS: Divalproex Sodium 250 MG TABLET.DR PO ×3 (02:14→21:25)
[2021-01-20] MEDS: QUEtiapine Fumarate 100 MG TABLET PO ×2 (02:14→21:40)
--- NOTE | 2021-01-20 05:45 | PC.NURSE ---
Patient slept through the night, no distress observed/reported, VSS, medication compliant, behavior appropriate, BHN assessed the patient, disposition is section 12 inpatient bed search, will continue to monitor.
--- NOTE | 2021-01-20 07:15 | PC.NURSE ---
patient remains at rest at present with even unlabored breaths, patient appears in no distress
[2021-01-20 10:15] VITALS: BP 117/80; PULSE 68
[2021-01-20] MEDS: Nicotine 21 MG PATCH.TD24 TRANSDERMA (10:15)
[2021-01-20] MEDS: Multivitamin TABLET 1 TAB PO (10:16)
[2021-01-20] MEDS: methADONE HCl 20 MG/2 ML ORAL.CONC 60 MG PO (10:16)
[2021-01-20] MEDS: buPROPion HCl XL 150 MG TAB.ER.24H PO (10:16)
[2021-01-20] MEDS: Omeprazole 40 MG CAPSULE.DR PO (10:16)
[2021-01-20 11:12] LABS: MANUAL DIFF FLAG NO
[2021-01-20 11:15] LABS: Basophils Percent Auto 0.5 % (0-2); Eosinophils Absolute Auto 0.2 X10*3/uL (0.0-0.4); Eosinophils Percent Auto 2.5 % (0-4); Hematocrit 37.3 % (42-52); Hemoglobin 12.6 g/dl (14.0-18.0); Imm Gran Abs Auto 0.01 X10*3/uL (0.00-0.03); Imm Gran Pct Auto 0.2 % (0.0-0.4); Lymphocytes Absolute Auto 3.4 X10*3/uL (1.2-4.9); Lymphocytes Percent Auto 56.4 % (20-40); Mean Corpuscular HGB Conc 33.8 g/dl (31.0-36.0); Mean Corpuscular Hemoglobin 30.3 pg (27.0-33.0); Mean Corpuscular Volume 89.7 fL (80-98); Mean Platelet Volume 9.4 fL (9.4-12.4); Monocytes Absolute Auto 0.4 X10*3/uL (0.1-1.2); Monocytes Percent Auto 7.1 % (2-11); Neutrophils Percent Auto 33.3 % (45-73); Platelet Count 216 X10*3/uL (160-400); Red Blood Count 4.16 X10*6/uL (4.60-5.80); Red Cell Distribution Width 13.4 % (11.0-16.0); White Blood Count 6.1 X10*3/uL (4.8-10.8)
[2021-01-20 11:32] LABS: Alanine Aminotransferase 25 U/L (0-40); Albumin Level 3.9 g/dL (3.5-5.0); Alkaline Phosphatase 106 U/L (39-117); Anion Gap 11 (12-20); Aspartate Amino Transferase 21 U/L (5-37); Bilirubin Total 0.4 mg/dL (0.0-1.0); Blood Urea Nitrogen 16 mg/dL (9-16); Calcium 8.9 mg/dL (8.4-10.2); Carbon Dioxide 31 mmol/L (22-29); Chloride 105 mmol/L (96-108); Creatinine Clr Calc Pharmacy 147.6; Estimated Glomerular Filt Rate > 60; Glucose Random 103 mg/dL (60-115); Potassium 3.9 mmol/L (3.3-5.1); Sodium 143 mmol/L (135-145); Total Protein 6.7 g/dL (6.5-8.0)
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
[2021-01-20 17:30] VITALS: BP 118/69; PULSE 60; RESP 16; TEMP 36.3; O2SAT 96
[2021-01-20 21:25] VITALS: BP 110/72; PULSE 89
[2021-01-21 06:00] VITALS: BP 119/57; PULSE 55; RESP 16; TEMP 36.3; O2SAT 95
[2021-01-21] MEDS: methADONE HCl 20 MG/2 ML ORAL.CONC 60 MG PO (09:16)
[2021-01-21] MEDS: buPROPion HCl XL 150 MG TAB.ER.24H PO (09:17)
[2021-01-21] MEDS: Multivitamin TABLET 1 TAB PO (09:17)
[2021-01-21] MEDS: Divalproex Sodium 250 MG TABLET.DR PO (09:17)
[2021-01-21] MEDS: Omeprazole 40 MG CAPSULE.DR PO (09:17)
[2021-01-21] MEDS: Nicotine 21 MG PATCH.TD24 TRANSDERMA (09:21)
[2021-01-21 10:36] VITALS: BP 100/58; PULSE 61
--- NOTE | 2021-01-21 18:41 | HO.PSYADMNOT ---
HPI Chief Complaint: PT requested psych zepeda Sources of Information: patient interviewed, chart reviewed and crisis/core team assessment reviewed HPI Subjective Notes: Billy Warning and Conditional Voluntary Healthcare Proxy: No Guardianship: No Medical Problems Affecting Mental Status: No Narrative: 30 yo male, one of several recent admissions. Hx of depression, opiate use disorder, presents with reports of SI with plan to jump in front of a car/bus/truck or to hang himself. Reports he needs to use substances to feel relief.. Reports poor sleep at night with reversal of cycle during the day along with poor appetite with weight loss. Reports lability of mood and low frustration tolerance. Pt did not follow up with aftercare planning after his recent discharge. Plan was for IOP with [facility]. Pt reported he just did not go. Pt lives with his mother who is very concerned about pt's safety and sobriety. She believes he is at risk in the home and she is at risk living with him due to substance use and resulting lability. Past Psychiatric History: [place] [facility] [place] OP: Denies current alliance Trials: Affirms, without ability to give specifics Medical Evaluation Reviewed: Yes [facility] Medical History Anxiety Depressed Opioid use disorder, severe, dependence Severe recurrent major depression Family History: addiction, depression Social History: Middle child of three. Father passed in 2015 of cirrhosis. Left school in his carmel year Hx of athletic skill and talent. Reports injury with need for pain medication and resulting transition to opiates Trauma History: Affirms Diagnostics Vital Signs (24Hr): Vital Signs - 24 hr 01/20/21 21:25 01/21/21 06:00 01/21/21 10:36 Temperature 97.3 F Pulse Rate 89 55 61 Respiratory Rate 16 Blood Pressure 110/72 119/57 L 100/58 L Pulse Oximetry 95 Body Mass Index 30.4 Labs Results: 01/20/21 11:06 01/20/21 11:06 Labs: Laboratory Results - last 48 hr 01/19/21 01/19/21 01/20/21 22:52 23:00 11:06 WBC 6.1 RBC 4.16 L Hgb 12.6 L Hct 37.3 L MCV 89.7 MCH 30.3 MCHC 33.8 RDW 13.4 Plt Count 216 MPV 9.4 Immature Gran % (Auto) 0.2 Neut % (Auto) 33.3 L Lymph % (Auto) 56.4 H [place] % (Auto) 7.1 Eos % (Auto) 2.5 Baso % (Auto) 0.5 Lymph # (Auto) 3.4 [place] # (Auto) 0.4 Eos # (Auto) 0.2 Baso # (Auto) 0.0 Abs Immat Gran (auto) 0.01 Absolute Neuts (auto) 2.0 Absolute Nucleated RBC 0.000 Nucleated RBC % (auto) 0.0 Sodium Potassium Chloride Carbon Dioxide Anion Gap BUN Creatinine Estim Creat Clear Calc Estimated GFR Random Glucose Calcium Total Bilirubin AST ALT Alkaline Phosphatase Total Protein Albumin Urine Opiates Screen POSITIVE H Urine Fentanyl Screen POSITIVE H Ur Barbiturates Screen Not Detected Ur Phencyclidine Scrn Not Detected Ur Amphetamines Screen Not Detected U Benzodiazepines Scrn Not Detected Urine Cocaine Screen POSITIVE H U Marijuana (THC) Screen Not Detected COVID-19 ([place]) Negative COVID-19 [employer] Com See Note 01/20/21 11:06 WBC RBC Hgb Hct MCV MCH MCHC RDW Plt Count MPV Immature Gran % (Auto) Neut % (Auto) Lymph % (Auto) [place] % (Auto) Eos % (Auto) Baso % (Auto) Lymph # (Auto) [place] # (Auto) Eos # (Auto) Baso # (Auto) Abs Immat Gran (auto) Absolute Neuts (auto) Absolute Nucleated RBC Nucleated RBC % (auto) Sodium 143 Potassium 3.9 Chloride 105 Carbon Dioxide 31 H Anion Gap 11 L BUN 16 Creatinine 0.99 Estim Creat Clear Calc 147.6 Estimated GFR > 60 Random Glucose 103 Calcium 8.9 Total Bilirubin 0.4 AST 21 ALT 25 Alkaline Phosphatase 106 Total Protein 6.7 Albumin 3.9 Urine Opiates Screen Urine Fentanyl Screen Ur Barbiturates Screen Ur Phencyclidine Scrn Ur Amphetamines Screen U Benzodiazepines Scrn Urine Cocaine Screen U Marijuana (THC) Screen COVID-19 ([place]ARDO) COVID-19 [employer] Com EKG EKG: reviewed EKG Comment: Sinus bradycardia Meds/Allergies Meds Home Medications Acetaminophen (Acetaminophen 325 Mg Tablet) 650 mg PO Q6H PRN PRN Reason: Headache/Pain Mild Scale (1-3) Al Hydroxide/Mg Hydroxide (Magnesium Hydrox/Alum Hydrox 30 Ml Oral.Susp) 30 ml PO Q6H PRN PRN Reason: Heartburn/Nausea Bupropion HCl (Bupropion Hcl Xl 300 Mg Tab.Er.24h) 300 mg PO DAILY [facility] Clonidine HCl (Clonidine Hcl 0.1 Mg Tablet) 0.1 mg PO TID [facility]; Protocol Last Admin: 01/21/21 14:39 Dose: Not Given Documented by: Divalproex Sodium (Divalproex Sodium 500 Mg Tablet.) 500 mg PO BID [facility] Hydroxyzine HCl (Hydroxyzine Hcl 25 Mg Tablet) 25 mg PO BEDTIME PRN PRN Reason: Anxiety Magnesium Hydroxide (Milk Of Magnesia 30 Ml Oral.Susp) 30 ml PO DAILY PRN PRN Reason: Constipation Methadone HCl (Methadone Hcl 20 Mg/2 Ml Oral.Conc) 60 mg PO DAILY [facility] Last Admin: 01/21/21 09:16 Dose: 60 mg Documented by: Multivitamins/Vitamin C (Multivitamin Tablet) 1 tab PO DAILY [facility] Last Admin: 01/21/21 09:17 Dose: 1 tab Documented by: Nicotine (Nicotine 21 Mg Patch.Td24) 21 mg TRANSDERMA DAILY [facility] Last Admin: 01/21/21 09:21 Dose: 21 mg Documented by: Omeprazole (Omeprazole 40 Mg Capsule.) 40 mg PO DAILY [facility] Last Admin: 01/21/21 09:17 Dose: 40 mg Documented by: Quetiapine Fumarate (Quetiapine Fumarate 50 Mg Tablet) 150 mg PO BEDTIME DANY Trazodone HCl (Trazodone Hcl 50 Mg Tablet) 50 mg PO BEDTIME PRN PRN Reason: Insomnia Allergies Allergies Allergy/AdvReac Type Severity Reaction Status Date / Time No Known Allergies Allergy Verified 01/19/21 22:17 [No Known Allergies*] Mental Status Exam Mental Status Exam Patient Appearance: Appropriate Patient Orientation: Person, Place, Time and Situation Level of Consciousness: Awake and Alert Patient Behavior: Appropriate, Guarded, Talkative, Cooperative, Suspicious, Avoidant and Good Eye Contact Mood Description: Blunted Affect Description: Blunted Patient Cognition Impaired: No Ability to Follow Directions: Good Speech Pattern: Spontaneous Speech Memory Description: Remote Impaired and Episodic Impaired Hallucinations: None Delusions: Not Present Thought Process: Rumination Thought Content: positive for Goal Oriented and positive for Suicidal Ideation Depressive Symptoms: Sleeping More Than Usual, Loss of Int. in Activity, Isolating-Friends/Family, Thoughts of /Suicide, Loss of Energy and Difficulty Concentrating Judgement: Fair Assessment & Plan Assessment & Plan (1) Opioid use disorder, severe, dependence: Status: Acute Code(s): F11.20 - Opioid dependence, uncomplicated (2) Severe recurrent major depression: Status: Acute Code(s): F33.2 - Major depressive disorder, recurrent severe without psychotic features (3) Suicidal ideation: Status: Acute Code(s): R45.851 - Suicidal ideations Assessment and Plan: 30 yo with a history of major depression, lability of mood and opioid use disorder. This is one of several admissions for pt as he presented with SI and two plans to implement action to take his life. Reports use a couple of times , heroin, cocaine to manage symptoms, toxicology positive for fentanyl, opiates, cocaine. In the ER he refused detox, [facility], E[facility]. Today he reports he would like transfer to [facility] and [facility], as he obtained his longest sobriety when living in one of these structured programs. He is unwilling to expand the search to [facility]. We will continue to work with his medications and encourage milieu participation. Plan: Increase Seroquel to 150 mg HS (an increase of 50 mg) Increase Depakote to 500 mg bid (no titration since last admission) Increase Wellbutrin to 300 mg XL a.m. (this was pt's dosage by history) Application for [facility] admission via child protective services social worker. Patient educated on: diagnosis, medication risk/benefits, substance abuse and therapeutic strategies Informed Consent: understands and further education needed Reason for continued inpatient stay Substantial Risk for: harm to self, harm to others, inability to function and rapid decompensation
[2021-01-21] MEDS: QUEtiapine Fumarate 50 MG TABLET 150 MG PO (21:07)
[2021-01-21] MEDS: Divalproex Sodium 500 MG TABLET.DR PO (21:07)
[2021-01-21 21:10] VITALS: BP 103/54; PULSE 52
[2021-01-22 06:00] VITALS: BP 117/70; PULSE 78; RESP 16; TEMP 36.8; O2SAT 98
[2021-01-22 07:00] VITALS: BMI 30.3
[2021-01-22] MEDS: Divalproex Sodium 500 MG TABLET.DR PO ×2 (08:07→20:31)
[2021-01-22] MEDS: Omeprazole 40 MG CAPSULE.DR PO (08:07)
[2021-01-22] MEDS: Multivitamin TABLET 1 TAB PO (08:07)
[2021-01-22] MEDS: buPROPion HCl XL 300 MG TAB.ER.24H PO (08:07)
[2021-01-22] MEDS: methADONE HCl 20 MG/2 ML ORAL.CONC 60 MG PO (08:07)
[2021-01-22] MEDS: Nicotine 21 MG PATCH.TD24 TRANSDERMA (08:07)
[2021-01-22 08:08] VITALS: BP 133/72; PULSE 68
[2021-01-22] MEDS: cloNIDine HCL 0.1 MG TABLET PO ×3 (08:08→20:30)
[2021-01-22 14:02] VITALS: BP 99/67; PULSE 87
--- NOTE | 2021-01-22 20:01 | HO.PSYCHPN ---
Subjective Subjective Date of Service: 01/22/21 Reason For Visit: Depression, Opioid use disorder Subjective Notes: Conditional Voluntary Healthcare Proxy: No Guardianship: No Medical Problems Affecting Mental Status: No Interim History: Pt resting in bed today. No reports of SE from medication titration on 01/21/21. Team reports no group attendance and limited acceptance of treatment options s/p discharge. Pt's mother has filed a Section XXXV in district court today and we are told it has been accepted, as pt has a history of Section XXXV with the most treatment and sobriety success. Currently, he is minimally engaged, after a few recent admissions, is not engaged in follow up care and has become a more consistent risk given these behavioral patterns. Mother reports fear of him and his self-destructive patterns, and identifies concerns for pt and herself should this pattern continue. Medication Compliance: Yes Side effects from medications: No Attending Groups: No Review of Systems Acute medical concerns: No Medical Review of Systems: unchanged Review of Systems Reports behavioral changes Psychiatric: Reports abnormal sleep pattern, Reports behavioral changes, Reports depression, Reports difficulty concentrating, Reports hopelessness, Reports irritability, Reports anhedonia and Reports suicidal ideation Mental Status Exam Mental Status Exam Patient Appearance: Disheveled Patient Orientation: Person, Place and Situation Level of Consciousness: Awake and Sedated Patient Behavior: Suspicious and Avoidant Mood Description: Depressed and Flat Affect Description: Flat Patient Cognition Impaired: No Ability to Follow Directions: Good Speech Pattern: Spontaneous Speech Memory Description: Remote Impaired and Episodic Impaired Hallucinations: None Delusions: Not Present Thought Process: Rumination Thought Content: positive for [place] and positive for Suicidal Ideation Depressive Symptoms: Sleeping More Than Usual, Loss of Int. in Activity, Hopelessness, Isolating-Friends/Family, Thoughts of /Suicide, Loss of Energy and Difficulty Concentrating Judgement: Fair Diagnostics Vital Signs (24Hr): Vital Signs - 24 hr 01/21/21 21:10 01/22/21 06:00 01/22/21 08:08 Temperature 98.2 F Pulse Rate 52 78 68 Respiratory Rate 16 Blood Pressure 103/54 L 117/70 133/72 Pulse Oximetry 98 01/22/21 14:02 Temperature Pulse Rate 87 Respiratory Rate Blood Pressure 99/67 Pulse Oximetry Body Mass Index 30.3 Labs Results: 01/20/21 11:06 01/20/21 11:06 Medications Medications Current Medications Acetaminophen (Acetaminophen 325 Mg Tablet) 650 mg PO Q6H PRN PRN Reason: Headache/Pain Mild Scale (1-3) Al Hydroxide/Mg Hydroxide (Magnesium Hydrox/Alum Hydrox 30 Ml Oral.Susp) 30 ml PO Q6H PRN PRN Reason: Heartburn/Nausea Bupropion HCl (Bupropion Hcl Xl 300 Mg Tab.Er.24h) 300 mg PO DAILY COUNTS INCLUDE 234 BEDS AT THE [facility] Last Admin: 01/22/21 08:07 Dose: 300 mg Documented by: Clonidine HCl (Clonidine Hcl 0.1 Mg Tablet) 0.1 mg PO TID COUNTS INCLUDE 234 BEDS AT THE [facility]; Protocol Last Admin: 01/22/21 14:02 Dose: 0.1 mg Documented by: Divalproex Sodium (Divalproex Sodium 500 Mg Tablet.) 500 mg PO BID COUNTS INCLUDE 234 BEDS AT THE [facility] Last Admin: 01/22/21 08:07 Dose: 500 mg Documented by: Hydroxyzine HCl (Hydroxyzine Hcl 25 Mg Tablet) 25 mg PO BEDTIME PRN PRN Reason: Anxiety Magnesium Hydroxide (Milk Of Magnesia 30 Ml Oral.Susp) 30 ml PO DAILY PRN PRN Reason: Constipation Methadone HCl (Methadone Hcl 20 Mg/2 Ml Oral.Conc) 60 mg PO DAILY COUNTS INCLUDE 234 BEDS AT THE [facility] Last Admin: 01/22/21 08:07 Dose: 60 mg Documented by: Multivitamins/Vitamin C (Multivitamin Tablet) 1 tab PO DAILY COUNTS INCLUDE 234 BEDS AT THE [facility] Last Admin: 01/22/21 08:07 Dose: 1 tab Documented by: Nicotine (Nicotine 21 Mg Patch.Td24) 21 mg TRANSDERMA DAILY COUNTS INCLUDE 234 BEDS AT THE [facility] Last Admin: 01/22/21 08:07 Dose: 21 mg Documented by: Omeprazole (Omeprazole 40 Mg Capsule.) 40 mg PO DAILY COUNTS INCLUDE 234 BEDS AT THE [facility] Last Admin: 01/22/21 08:07 Dose: 40 mg Documented by: Quetiapine Fumarate (Quetiapine Fumarate 50 Mg Tablet) 150 mg PO BEDTIME COUNTS INCLUDE 234 BEDS AT THE [facility] Last Admin: 01/21/21 21:07 Dose: 150 mg Documented by: Trazodone HCl (Trazodone Hcl 50 Mg Tablet) 50 mg PO BEDTIME PRN PRN Reason: Insomnia Allergies Allergies Allergy/AdvReac Type Severity Reaction Status Date / Time No Known Allergies Allergy Verified 01/19/21 22:17 [No Known Allergies*] Assessment & Plan Assessment & Plan (1) Opioid use disorder, severe, dependence: Status: Acute Code(s): F11.20 - Opioid dependence, uncomplicated (2) Severe recurrent major depression: Status: Acute Code(s): F33.2 - Major depressive disorder, recurrent severe without psychotic features (3) Suicidal ideation: Status: Acute Code(s): R45.851 - Suicidal ideations Assessment and Plan: 30 yo with a history of major depression, lability of mood and opioid use disorder. This is one of several admissions for pt as he presented with SI and two plans to implement action to take his life. Reports use a couple of times , heroin, cocaine to manage symptoms, toxicology positive for fentanyl, opiates, cocaine. In the ER he refused detox, CSS, EATS. Today he reports he would like transfer to [facility] and [facility], as he obtained his longest sobriety when living in one of these structured programs. He is unwilling to expand the search to [facility]. We will continue to work with his medications and encourage milieu participation. Today, his mother has filed and received a Section XXXV-pt will present to court in the morning. Plan: Probable transfer on 01/[address] hearing. Continue current regime. Greater than 50% of the session was spent on counseling and/or coordination of care Informed Consent: understands Reason for contiued inpatient stay Substantial Risk for: harm to self, inability to function and rapid decompensation
[2021-01-22 20:25] VITALS: BP 136/76; PULSE 66; RESP 15; TEMP 36.7; O2SAT 95
[2021-01-22 20:30] VITALS: BP 136/76; PULSE 66
[2021-01-22] MEDS: QUEtiapine Fumarate 50 MG TABLET 150 MG PO (20:30)
[2021-01-23 06:00] VITALS: BP 112/54; PULSE 64; RESP 20; TEMP 36.6; O2SAT 99
[2021-01-23 08:53] VITALS: BP 112/60; PULSE 68
[2021-01-23] MEDS: Divalproex Sodium 500 MG TABLET.DR PO (08:53)
[2021-01-23] MEDS: Omeprazole 40 MG CAPSULE.DR PO (08:53)
[2021-01-23] MEDS: methADONE HCl 20 MG/2 ML ORAL.CONC 60 MG PO (08:53)
[2021-01-23] MEDS: Nicotine 21 MG PATCH.TD24 TRANSDERMA (08:53)
[2021-01-23] MEDS: Multivitamin TABLET 1 TAB PO (08:53)
[2021-01-23] MEDS: buPROPion HCl XL 300 MG TAB.ER.24H PO (08:53)
[2021-01-23] MEDS: cloNIDine HCL 0.1 MG TABLET PO (08:53)
--- NOTE | 2021-01-23 17:09 | PM.PSYDC ---
DS: Providers Provider Date of Service: 01/23/21 Date of admission: 01/20/21 12:33 Date of discharge: 01/23/21 Primary care physician: Kendrick Barnes MD Admitting clinician: Amanda Belcher Attending physician on admission: Giovani Napier Attending physician on discharge: Giovani Napier Discharging clinician: Amanda Belcher DS: Diagnosis Discharge Diagnosis (1) Severe recurrent major depression: Status: Acute (2) Opioid use disorder, severe, dependence: Status: Acute (3) Suicidal ideation: Status: Acute DS: Medications Discharge Medications Home Medications: Home Medications Medication Instructions Recorded Confirmed methadone 10 mg/mL oral 60 mg PO DAILY 01/06/21 01/20/21 concentrate (Methadone Intensol) clonidine HCl 0.1 mg tablet 1 tab PO TID 01/15/21 01/19/21 multivitamin 1 tab PO DAILY 01/15/21 01/19/21 omeprazole 40 mg capsule,delayed 1 cap PO DAILY 01/15/21 01/19/21 release Previous Rx's Medication Instructions Recorded bupropion HCl 300 mg 24 hr tablet, 300 mg PO DAILY #1 tab NS 01/22/21 extended release divalproex 500 mg tablet,delayed 500 mg PO BID #1 tab 01/22/21 release quetiapine 50 mg tablet 150 mg PO BEDTIME #3 tab 01/22/21 Mental Status Exam Mental Status Exam Patient Appearance: Disheveled Patient Orientation: Person, Place and Situation Level of Consciousness: Awake and Sedated Patient Behavior: Suspicious and Avoidant Mood Description: Depressed and Flat Affect Description: Flat Patient Cognition Impaired: No Ability to Follow Directions: Good Speech Pattern: Spontaneous Speech Memory Description: Remote Impaired and Episodic Impaired Hallucinations: None Delusions: Not Present Thought Process: Rumination Thought Content: positive for [place] Depressive Symptoms: Sleeping More Than Usual, Loss of Int. in Activity, Hopelessness, Isolating-Friends/Family, Loss of Energy and Difficulty Concentrating Judgement: Fair Data Data Completed and Pending Completed studies during hospitalization [Text1]: 01/19/21 01/19/21 01/20/21 22:52 23:00 11:06 WBC 6.1 RBC 4.16 L Hgb 12.6 L Hct 37.3 L MCV 89.7 MCH 30.3 MCHC 33.8 RDW 13.4 Plt Count 216 MPV 9.4 Immature Gran % (Auto) 0.2 Neut % (Auto) 33.3 L Lymph % (Auto) 56.4 H [place] % (Auto) 7.1 Eos % (Auto) 2.5 Baso % (Auto) 0.5 Lymph # (Auto) 3.4 [place] # (Auto) 0.4 Eos # (Auto) 0.2 Baso # (Auto) 0.0 Abs Immat Gran (auto) 0.01 Absolute Neuts (auto) 2.0 Absolute Nucleated RBC 0.000 Nucleated RBC % (auto) 0.0 Sodium Potassium Chloride Carbon Dioxide Anion Gap BUN Creatinine Estim Creat Clear Calc Estimated GFR Random Glucose Calcium Total Bilirubin AST ALT Alkaline Phosphatase Total Protein Albumin Urine Opiates Screen POSITIVE H Urine Fentanyl Screen POSITIVE H Ur Barbiturates Screen Not Detected Ur Phencyclidine Scrn Not Detected Ur Amphetamines Screen Not Detected U Benzodiazepines Scrn Not Detected Urine Cocaine Screen POSITIVE H U Marijuana (THC) Screen Not Detected COVID-19 ([facility]ARDO) Negative COVID-19 [employer] See Note 01/20/21 11:06 WBC RBC Hgb Hct MCV MCH MCHC RDW Plt Count MPV Immature Gran % (Auto) Neut % (Auto) Lymph % (Auto) [place] % (Auto) Eos % (Auto) Baso % (Auto) Lymph # (Auto) [place] # (Auto) Eos # (Auto) Baso # (Auto) Abs Immat Gran (auto) Absolute Neuts (auto) Absolute Nucleated RBC Nucleated RBC % (auto) Sodium 143 Potassium 3.9 Chloride 105 Carbon Dioxide 31 H Anion Gap 11 L BUN 16 Creatinine 0.99 Estim Creat Clear Calc 147.6 Estimated GFR > 60 Random Glucose 103 Calcium 8.9 Total Bilirubin 0.4 AST 21 ALT 25 Alkaline Phosphatase 106 Total Protein 6.7 Albumin 3.9 Urine Opiates Screen Urine Fentanyl Screen Ur Barbiturates Screen Ur Phencyclidine Scrn Ur Amphetamines Screen U Benzodiazepines Scrn Urine Cocaine Screen U Marijuana (THC) Screen COVID-19 ([facility]) COVID-19 [facility] Com DS: Summary Hospital Course Hospital Course: Pt admitted on a conditional voluntary status. This is his third admission in a brief period of time. Each time discharged, pt is not following up with scheduled aftercare. Family reported they believe pt is wandering the home at night looking for belongings and lerma to sell to purchase substances. Pt presented with significant apathy and amotivation. His mother filed a Section XXXV and pt was transferred to court and admitted to [facility] in [place] for further addiction treatment. Time spent discussing smoking cessation with patient: 3 to 10 minutes Status at Discharge Cognitive/behavioral status at discharge: non-psychotic, non-suicidal, flat affect. Functional status at discharge: independent ambulation Overall status at discharge: patient is not back to baseline Time Spent with Patient Time attestation: Total time spent providing and/or coordinating discharge services: 20 Time spent: Less than 30 minutes Discharge Plan Discharge Anticipated Discharge Date/Time: 01/23/21 12:18 Patient Disposition: Xfer Other Discharge Diagnosis: Recurrent Major Depression, Severe Opiate Use Disorder, Severe, Dependence, on replacement therapy Referrals: Kendrick Barnes MD [Primary Care Provider] - (Please follow up. ) Discharge Medications: New divalproex 500 mg Tablet,Delayed Release (Dr/Ec) 500 mg PO BID Qty: 1 RF: 0 bupropion HCl 300 mg Tablet Extended Release 24 Hr 300 mg PO DAILY Qty: 1 RF: 0 quetiapine 50 mg Tablet 150 mg PO BEDTIME Qty: 3 RF: 0 Continued methadone [Methadone Intensol] 10 mg/mL Concentrate 60 mg PO DAILY RF: 0 multivitamin Tablet 1 tab PO DAILY RF: 0 clonidine HCl 0.1 mg tablet 1 tab PO TID RF: 0 omeprazole 40 mg capsule,delayed release(DR/EC) 1 cap PO DAILY RF: 0 Discontinued divalproex 250 mg tablet,delayed release (DR/EC) 1 tab PO BID RF: 0 quetiapine 100 mg tablet 1 tab PO BEDTIME RF: 0 nicotine 21 mg/24 hr patch 24 hour 1 patch topical QAM RF: 0 bupropion HCl 150 mg tablet extended release 24 hr 1 tab PO QAM RF: 0 Discharge Orders: Discharge Order (Routine); Ordered 01/23/21 Ordered By: Amanda Belcher Diet: advance to usual diet Activity on Discharge: As tolerated Stand Alone Forms: Patient Portal Discharge page, Community Support Care Plan Goals: Mood Stabilization Sobriety Health Concerns: Major Depression Opioid Use Disorder Plan of Treatment: Follow treatment instructions from your team. Assessment: Pt escorted to court with police and [facility] for Section XXXV hearing. Discharge Date/Time: 01/23/21 11:15
== END 2021-01-23 11:15 | disposition other institution (70) | DRG 751 ==
LOC: HO.ED 01-20 12:37 → HO.PM5 01-20 12:39
PROVIDERS: Physician Assistant; Admitting Provider Clinical Nurse Specialist Psychiatric/Mental Health, Adult; Emergency Provider Emergency Medicine; PCP Internal Medicine; Visit Provider Clinical Nurse Specialist Psychiatric/Mental Health, Adult
DX: F33.2 Major depressive disorder, recurrent severe without psychotic features (principal); R45.851 Suicidal ideations; F11.20 Opioid dependence, uncomplicated; F17.210 Nicotine dependence, cigarettes, uncomplicated; Z20.822 Contact with and (suspected) exposure to COVID-19; Z71.6 Tobacco abuse counseling; Z79.899 Other long term (current) drug therapy
CPT/HCPCS: 36415; 80053; 80307; 85025; 87635; 93005; 99285

== ENCOUNTER 2023-04-14 19:07 | Inpatient (IN) | payer OTHER, SELFPAY ==
[2023-04-14 19:44] VITALS: BP 99/57; PULSE 71; RESP 18; TEMP 36.4; O2SAT 96; BMI 29.0
--- NOTE | 2023-04-14 19:46 | ED.GENADULT ---
HPI - General Adult General Chief complaint: Psychiatric Symptoms Stated complaint: crisis eval Time Seen by Provider: 04/14/23 20:07 Source: patient Mode of arrival: ambulatory Limitations: no limitations History of Present Illness HPI narrative: Patient with history of polysubstance abuse IVDA heroin cocaine bipolar disorder and depression was sober for 1 year relapsed in last 4 months been using drugs was in detox place last week checked out himself yesterday and started using heroin and cocaine again last night patient was not feeling safe had thoughts about overdosing himself with drugs history of same in the past. Patient feels that he needs to go to dual diagnosis with bipolar disorder and substance abuse patient used to be on Depakote and Wellbutrin to stop few months ago currently on methadone 70 mg daily does not have any psychiatrist to follow and feels unsafe at home with no current SI Related Data Home Medications Medication Instructions Recorded Confirmed methadone 10 mg/mL oral 60 mg PO DAILY 01/06/21 01/20/21 concentrate (Methadone Intensol) Allergies Allergy/AdvReac Type Severity Reaction Status Date / Time No Known Allergies Allergy Verified 01/19/21 22:17 [No Known Allergies*] Review of Systems Review of Systems: Yes all other systems are reviewed and are negative PMFSH Past Medical History Medical History Opioid use disorder, severe, dependence Severe recurrent major depression Depressed Anxiety Social History Social History Household Members: Family and Other Household Members Other:: Mother Housing: House Do you presently have visiting nurse or other home services: No Alcohol intake: unknown Comment: Pt walks independently; per pt falls r/t to poor food/fluid intake, drugs Patient Tobacco Use Status: Current everyday Tobacco user Tobacco use type: Cigarette Cigarette Packs Per Day: 1 Cigarettes Per Day: 20.0 Years Smoked: 10 Smoked in Last 30 Days: Yes e-Cigarette/Vaping Use: Currently Using Second Hand Smoke Exposure: Yes Substance Use Type: Crack/Cocaine and Opiates Advance Directives: No Advance Directives Information Provided: No Healthcare Proxy: No Guardian: No service: No Sexual orientation: Straight/Heterosexual Physical Exam ED Vital Signs: Vital Signs - 24 hr 04/14/23 19:44 04/15/23 06:21 Temperature 97.5 F 97.7 F Pulse Rate 71 65 Respiratory Rate 18 16 Blood Pressure 99/57 L 118/61 Pulse Oximetry 96 99 Oxygen Delivery Method Room Air Room Air BMI result Body Mass Index 29.0 Appearance: Alert. Oriented X3. No acute distress. Eyes: PERRLA, No Nystagmus ENT: Pharynx normal. Oral Mucosa moist Neck: Normal inspection. Neck supple. CVS: Normal heart rate and rhythm. Pulses normal. Respiratory: No respiratory distress. Equal air entry bilateral, no wheezing/rales/rhonchi Abdomen: Soft and nontender. Bowel sounds are present, no mass palpable, no CVA tenderness Skin: Skin warm and dry. Normal skin color. Normal skin turgor. Extremities: No lower extremity edema. No calf tenderness IVDA canales+ psych: Feels depressed denies any SI or hallucination or delusion Neuro: Oriented X 3. No motor deficit. No sensory deficit.No cerebellar signs , cranial nerves II-XII intact Course Course Course Narrative: RME:?32 yo male hx of opioid use disorder, MDD wellbutrin, depakote here with admits to stopping all medications 1 mo ago (wellbutrin, depakote). Endorses severe depression which made him relapse. Completed 6 days of detox yesterday. On methadone with last dose yesterday at treatment center. Used heroin IV this morning. Endorses SI without plan. No physical complaints. And for medical clearance and criris eval. Full HPI, ROS and PE to be performed by the primary ED provider. Reevaluation(s) Reevaluation #1: Physician observation continued. VS stable, no acute events overnight, inpatient bed search. Medications Administered Discontinued Medications Generic Name Dose Route Start Last Admin Trade Name Freq PRN Reason Stop Dose Admin Hydroxyzine HCl 50 mg 04/14/23 21:33 04/14/23 21:59 Hydroxyzine Hcl 50 Mg Tablet PO 04/14/23 21:34 50 mg ONCE ONE Administration Medical Decision Making Medical Decision Making [facility] Narrative: Patient has significant depression bipolar disorder with polysubstance abuse seen by care team plan for inpatient admission for bipolar disorder and substance abuse Differential Diagnosis Differential Diagnoses: The differential diagnosis associated with the presentation includes Lab Data [facility] Lab Attestation statement: I reviewed the patient's lab results. 04/14/23 20:49 04/14/23 20:49 Labs: Lab Results 04/14/23 04/14/23 Range/Units 20:49 22:53 WBC 8.3 (4.8-10.8) X10*3/uL RBC 4.41 L (4.60-5.80) X10*6/uL Hgb 13.1 L (14.0-18.0) g/dl Hct 37.9 L (42.0-52.0) % MCV 85.9 (80.0-98.0) fL MCH 29.7 (27.0-33.0) pg MCHC 34.6 (31.0-36.0) g/dl RDW 13.3 (11.0-16.0) % Plt Count 282 (160-400) X10*3/uL MPV 8.7 L (9.4-12.4) fL Immature Gran % (Auto) 0.2 (0.0-0.4) % Neut % (Auto) 40.9 L (45-73) % Lymph % (Auto) 50.8 H (20-40) % [place] % (Auto) 5.7 (2-11) % Eos % (Auto) 1.9 (0-4) % Baso % (Auto) 0.5 (0-2) % Lymph # (Auto) 4.2 (1.2-4.9) X10*3/uL [place] # (Auto) 0.5 (0.1-1.2) X10*3/uL Eos # (Auto) 0.2 (0.0-0.4) X10*3/uL Baso # (Auto) 0.0 (0.0-0.2) X10*3/uL Abs Immat Gran (auto) 0.02 (0.00-0.03) X10*3/uL Absolute Neuts (auto) 3.4 (2.0-8.3) x10*3/uL Absolute Nucleated RBC 0.000 (0.0-0.012) X10*3/uL Nucleated RBC % (auto) 0.0 (0.0-0.2) /100WBC Sodium 138 (135-145) mmol/L Potassium 4.1 (3.3-5.1) mmol/L Chloride 105 (96-108) mmol/L Carbon Dioxide 25 (22-29) mmol/L Anion Gap 12 (12-20) BUN 32 H (9-16) mg/dL Creatinine 0.99 (0.5-1.4) mg/dL Estim Creat Clear Calc 141.7 Estimated GFR > 60 Random Glucose 148 H (60-115) mg/dL Calcium 9.4 (8.4-10.2) mg/dL Magnesium 2.1 (1.6-2.6) mg/dL Lipase 17 (8-78) U/L Urine Color Yellow Urine Appearance Clear Urine pH 5.5 (5.0-9.0) Ur Specific [place] >= 1.030 H (1.005-1.025) Urine Protein Negative (Neg-Trace) mg/dL Urine Glucose (UA) Negative (Negative) mg/dL Urine Ketones Negative (Negative) mg/dL Urine Blood Negative (Negative) Urine Nitrite Negative (Negative) Ur Leukocyte Esterase Negative (Negative) Salicylates < 5.0 L (15-30) mg/dL Urine Opiates Screen POSITIVE H (Not Detect) Urine Fentanyl Screen POSITIVE H (Not Detect) Ur Barbiturates Screen Not Detected (Not Detect) Ur Phencyclidine Scrn Not Detected (Not Detect) Ur Amphetamines Screen Not Detected (Not Detect) U Benzodiazepines Scrn POSITIVE H (Not Detect) Urine Cocaine Screen POSITIVE H (Not Detect) U Marijuana (THC) Screen Not Detected (Not Detect) Ethyl Alcohol < 10 mg/dL Discharge Plan Discharge Clinical Impression: Bipolar disorder, Polysubstance abuse, Suicidal ideation Patient Disposition: Still a Patient Prescriptions: No Action methadone [Methadone Intensol] 10 mg/mL Concentrate 60 mg PO DAILY Interventions: Melba-Suicide Risk Severity Scale Last Done: 04/14/23 20:58
[2023-04-14 20:55] LABS: MANUAL DIFF FLAG NO
[2023-04-14 21:02] LABS: Basophils Percent Auto 0.5 % (0-2); Eosinophils Absolute Auto 0.2 X10*3/uL (0.0-0.4); Eosinophils Percent Auto 1.9 % (0-4); Hematocrit 37.9 % (42.0-52.0); Hemoglobin 13.1 g/dl (14.0-18.0); Imm Gran Abs Auto 0.02 X10*3/uL (0.00-0.03); Imm Gran Pct Auto 0.2 % (0.0-0.4); Lymphocytes Absolute Auto 4.2 X10*3/uL (1.2-4.9); Lymphocytes Percent Auto 50.8 % (20-40); Mean Corpuscular HGB Conc 34.6 g/dl (31.0-36.0); Mean Corpuscular Hemoglobin 29.7 pg (27.0-33.0); Mean Corpuscular Volume 85.9 fL (80.0-98.0); Mean Platelet Volume 8.7 fL (9.4-12.4); Monocytes Absolute Auto 0.5 X10*3/uL (0.1-1.2); Monocytes Percent Auto 5.7 % (2-11); Neutrophils Absolute Auto 3.4 x10*3/uL (2.0-8.3); Neutrophils Percent Auto 40.9 % (45-73); Platelet Count 282 X10*3/uL (160-400); Red Blood Count 4.41 X10*6/uL (4.60-5.80); Red Cell Distribution Width 13.3 % (11.0-16.0); White Blood Count 8.3 X10*3/uL (4.8-10.8)
[2023-04-14 21:07] LABS: Ethanol < 10 mg/dL
[2023-04-14 21:09] LABS: Anion Gap 12 (12-20); Blood Urea Nitrogen 32 mg/dL (9-16); Calcium 9.4 mg/dL (8.4-10.2); Carbon Dioxide 25 mmol/L (22-29); Chloride 105 mmol/L (96-108); Creatinine Clr Calc Pharmacy 141.7; Estimated Glomerular Filt Rate > 60; Glucose Random 148 mg/dL (60-115); Lipase 17 U/L (8-78); Magnesium 2.1 mg/dL (1.6-2.6); Potassium 4.1 mmol/L (3.3-5.1); Sodium 138 mmol/L (135-145)
[2023-04-14 21:10] LABS: Salicylate < 5.0 mg/dL (15-30)
[2023-04-14] MEDS: hydrOXYzine HCL 50 MG TABLET PO (21:59)
--- NOTE | 2023-04-14 22:02 | PC.NURSE ---
client fell asleep with pudding in hand
[2023-04-14 23:03] LABS: Appearance Urine Clear; Color Urine Yellow; Glucose Urine UA Negative (Negative); Leukocyte Esterase Urine Negative (Negative); Nitrite Urine Negative (Negative); PH 5.5 (5.0-9.0); Specific Gravity - Urine >= 1.030 (1.005-1.025); Urine Blood Negative (Negative); Urine Ketones Negative (Negative); Urine Protein Negative (Neg-Trace)
[2023-04-14 23:11] LABS: Amphetamine Screen Urine Not Detected (Not Detect); Barbiturates, Urine Not Detected (Not Detect); Benzodiazepines Screen Urine POSITIVE (Not Detect); Cannabinoid Screen Urine Not Detected (Not Detect); Cocaine Screen Urine POSITIVE (Not Detect); Fentanyl, urine POSITIVE (Not Detect); Opiate Screen Urine POSITIVE (Not Detect); Phencyclidine Screen Urine Not Detected (Not Detect)
[2023-04-15 06:21] VITALS: BP 118/61; PULSE 65; RESP 16; TEMP 36.5; O2SAT 99
--- NOTE | 2023-04-15 07:23 | PC.NURSE ---
assumed care of pt at 0700. pt sleeping soundly in bed, rr even/unlabored. breakfast tray at bedside. plan of care ongoing.
--- NOTE | 2023-04-15 08:18 | ECG_ITS ---
Test Reason : CHECK PROLONG QT Blood Pressure : / mmHG Vent. Rate : 064 BPM Atrial Rate : 064 BPM P-R Int : 200 ms QRS Dur : 102 ms QT Int : 448 ms P-R-T Axes : 062 001 037 degrees QTc Int : 462 ms Normal sinus rhythm Normal ECG When compared with ECG of 20-JAN-2021 10:54, No significant change was found Referred By: Anna Reina Electronically Signed By:ASTRID PERALTA
--- NOTE | 2023-04-15 09:58 | PC.NURSE ---
pt's girlfriend, Kaliariccardo, called to speak with pt. pt still sleeping, asked if pt could call her when he wakes up. Adrienne would like to speak with pt about signing release form . Adrienne: [phone]
--- NOTE | 2023-04-15 10:33 | HE.PHANOTE ---
RE: METHADONE patient gets methadone with [facility], doses with 65 mg, last dosed 04/07/23
--- NOTE | 2023-04-15 10:43 | PHA.MEDREC ---
Pharmacy Consult ? Medication Reconciliation Pharmacy has completed the medication reconciliation. Spoke to pt to confirm meds. Patient reported clonidine and hydroxyzine of unknown doses, but stated they get it at [facility]. Called their pharmacy, and per pharmacy patient hasn't picked up the medications in over a year. Leaving off med rec.
--- NOTE | 2023-04-15 10:48 | PC.NURSE ---
methadone verification form completed and faxed to pharmacy.
[2023-04-15 11:06] LABS: COVID-19 Test Negative (Negative); IDNOW Serial# 58CA691E
--- NOTE | 2023-04-15 11:34 | PC.NURSE ---
Assumed care of patient at 1100, pt sleeping at this time. Respirations even and unlabored, no apparent distress. Continue plan of care for inpt admission
[2023-04-15] MEDS: Nicotine Polacrilex 2 MG GUM 4 MG BUCCAL (17:27)
[2023-04-15] MEDS: hydrOXYzine HCL 25 MG TABLET PO (17:27)
[2023-04-15] MEDS: Ibuprofen 400 MG TABLET PO (17:27)
[2023-04-15] MEDS: cloNIDine HCL 0.1 MG TABLET PO (17:27)
[2023-04-15] MEDS: Nicotine 21 MG PATCH.TD24 TRANSDERMA (17:27)
--- NOTE | 2023-04-15 18:29 | PC.ADMIT ---
Adrien arrived to the unit at 1600 on a Conditional Voluntary, sharps check done by television writer and male MHC. Upon approach Adrien appeared irritable reported Not feeling good. Endorsing depression and anxiety, passive SI, when asked if he would seek out staff if urge to hurt self occurred stated Yes. He denied AVH, slightly guarded Do I really have to answer all these questions. Per assessment, he presented to the ER secondary to SI after leaving [facility] and relapsing on heroin, cocaine, fentanyl and benzodiazepines. He reported not feeling safe at home and having SI by overdose. In 2016 per assessment he had an intentional overdose on heroin that led to him being hospitalized.
[2023-04-15 20:00] VITALS: BP 102/53; PULSE 60; RESP 15; TEMP 36.6; O2SAT 96
[2023-04-16] MEDS: Omeprazole 40 MG CAPSULE.DR PO (06:40)
[2023-04-16 07:25] VITALS: BP 116/57; PULSE 51; RESP 16; TEMP 36.4; O2SAT 97
--- NOTE | 2023-04-16 07:43 | PC.NURSE ---
Pt refused labs, aware.
--- NOTE | 2023-04-16 08:01 | P.PNPSI_ITS ---
Subjective Subjective Reason For Visit: crisis Diagnostics Vital Signs (24Hr): Vital Signs - 24 hr 04/15/23 20:00 Temperature 97.8 F Pulse Rate 60 Respiratory Rate 15 Blood Pressure 102/53 L Pulse Oximetry 96 Oxygen Delivery Method Room Air BMI result Body Mass Index 29.0 Labs 04/14/23 20:49 04/14/23 20:49 Labs: Laboratory Results - last 48 hr 04/14/23 04/14/23 04/15/23 20:49 22:53 10:38 WBC 8.3 RBC 4.41 L Hgb 13.1 L Hct 37.9 L MCV 85.9 MCH 29.7 MCHC 34.6 RDW 13.3 Plt Count 282 MPV 8.7 L Immature Gran % (Auto) 0.2 Neut % (Auto) 40.9 L Lymph % (Auto) 50.8 H [place] % (Auto) 5.7 Eos % (Auto) 1.9 Baso % (Auto) 0.5 Lymph # (Auto) 4.2 [place] # (Auto) 0.5 Eos # (Auto) 0.2 Baso # (Auto) 0.0 Abs Immat Gran (auto) 0.02 Absolute Neuts (auto) 3.4 Absolute Nucleated RBC 0.000 Nucleated RBC % (auto) 0.0 Sodium 138 Potassium 4.1 Chloride 105 Carbon Dioxide 25 Anion Gap 12 BUN 32 H Creatinine 0.99 Estim Creat Clear Calc 141.7 Estimated GFR > 60 Random Glucose 148 H Calcium 9.4 Magnesium 2.1 Lipase 17 Urine Color Yellow Urine Appearance Clear Urine pH 5.5 Ur Specific [place] >= 1.030 H Urine Protein Negative Urine Glucose (UA) Negative Urine Ketones Negative Urine Blood Negative Urine Nitrite Negative Ur Leukocyte Esterase Negative Salicylates < 5.0 L Urine Opiates Screen POSITIVE H Urine Fentanyl Screen POSITIVE H Ur Barbiturates Screen Not Detected Ur Phencyclidine Scrn Not Detected Ur Amphetamines Screen Not Detected U Benzodiazepines Scrn POSITIVE H Urine Cocaine Screen POSITIVE H U Marijuana (THC) Screen Not Detected Ethyl Alcohol < 10 COVID-19 ([facility]) Negative COVID-19 Clin Com See Note Medications Medications Current Medications Acetaminophen (Acetaminophen 325 Mg Tablet) 650 mg PO Q6H PRN PRN Reason: Headache/Pain Mild Scale (1-3) Al Hydroxide/Mg Hydroxide (Magnesium Hydrox/Alum Hydrox 30 Ml Oral.Susp) 30 ml PO Q6H PRN PRN Reason: Heartburn/Nausea Clonidine HCl (Clonidine Hcl 0.1 Mg Tablet) 0.1 mg PO TID PRN; Protocol PRN Reason: withdrawal Last Admin: 04/15/23 17:27 Dose: 0.1 mg Hydroxyzine HCl (Hydroxyzine Hcl 25 Mg Tablet) 25 mg PO Q6H PRN PRN Reason: Anxiety Last Admin: 04/15/23 17:27 Dose: 25 mg Ibuprofen (Ibuprofen 400 Mg Tablet) 400 mg PO Q6H PRN PRN Reason: Pain, Mild (Pain Scale 1-3) Last Admin: 04/15/23 17:27 Dose: 400 mg Magnesium Hydroxide (Milk Of Magnesia 30 Ml Oral.Susp) 30 ml PO DAILY PRN PRN Reason: Constipation Methadone HCl (Methadone Hcl 20 Mg/2 Ml Oral.Conc) 65 mg PO DAILY DANY Nicotine (Nicotine 21 Mg Patch.Td24) 21 mg TRANSDERMA DAILY DANY Nicotine Polacrilex (Nicotine Polacrilex 2 Mg Gum) 4 mg BUCCAL Q1H PRN PRN Reason: Nicotine Cravings Last Admin: 04/15/23 17:27 Dose: 4 mg Omeprazole (Omeprazole 40 Mg Capsule.Dr) 40 mg PO DAILY@0630 DANY Last Admin: 04/16/23 06:40 Dose: 40 mg Senna (Sennosides 8.6 Mg Tablet) 8.6 mg PO BEDTIME PRN PRN Reason: Constipation Trazodone HCl (Trazodone Hcl 50 Mg Tablet) 50 mg PO BEDTIME MRX1 PRN PRN Reason: Insomnia Allergies Allergies Allergy/AdvReac Type Severity Reaction Status Date / Time No Known Allergies Allergy Verified 01/19/21 22:17 [No Known Allergies*] Assessment & Plan Time Spent With Patient Time: Total time managing care of this patient today ____ minutes.
--- NOTE | 2023-04-16 08:02 | P.HPPS_ITS ---
HPI Date of Service: 04/16/23 Chief Complaint: crisis Sources of Information: patient interviewed, chart reviewed and crisis/core team assessment reviewed HPI Subjective Notes: Conditional Voluntary Narrative: 33 yo WM presented s/p relpase on multiple substances after leaving detox- used heroin, fentanyl, cocaine and benzodiazepines- denies it was a suicide attempt though he has si - he didn't od- He had hx of od 2015. He reports things started to decline when he stopped his wellbutrin for depression- he felt more down, slept more, and lead to relapse while on methadone of opiate use. He reports doesn't know why he went off wellbutrin thinks he even had refills. hoping to get on sublicade through his [facility]. Reports he attends has gf of 10 month relationship, and had a job for last few months not sure if he still has it. Past Psychiatric History: IP: [facility] 2016 s/p heroin overdose OP: Denies current alliance Trials: Affirms, without ability to give specifics Medical Evaluation Reviewed: Yes [facility] Medical History (Updated 04/16/23 @ 21:42 by Ellyn Madrigal MD) Opioid use disorder, severe, dependence Severe recurrent major depression Depressed Anxiety Family History: addiction, depression Social History: Middle child of three. Father passed in 2016 of cirrhosis. Left school in his carmel year Hx of athletic skill and talent. Reports injury with need for pain medication and resulting transition to opiates denies hx of aggression, no serious halfway/legal issues Substance History: goes to Trauma History: Affirms Diagnostics Vital Signs (24Hr): Vital Signs - 24 hr 04/15/23 20:00 Temperature 97.8 F Pulse Rate 60 Respiratory Rate 15 Blood Pressure 102/53 L Pulse Oximetry 96 Oxygen Delivery Method Room Air BMI result Body Mass Index 29.0 Labs 04/14/23 20:49 04/14/23 20:49 Labs: Laboratory Results - last 48 hr 04/14/23 04/14/23 04/15/23 20:49 22:53 10:38 WBC 8.3 RBC 4.41 L Hgb 13.1 L Hct 37.9 L MCV 85.9 MCH 29.7 MCHC 34.6 RDW 13.3 Plt Count 282 MPV 8.7 L Immature Gran % (Auto) 0.2 Neut % (Auto) 40.9 L Lymph % (Auto) 50.8 H [place] % (Auto) 5.7 Eos % (Auto) 1.9 Baso % (Auto) 0.5 Lymph # (Auto) 4.2 [place] # (Auto) 0.5 Eos # (Auto) 0.2 Baso # (Auto) 0.0 Abs Immat Gran (auto) 0.02 Absolute Neuts (auto) 3.4 Absolute Nucleated RBC 0.000 Nucleated RBC % (auto) 0.0 Sodium 138 Potassium 4.1 Chloride 105 Carbon Dioxide 25 Anion Gap 12 BUN 32 H Creatinine 0.99 Estim Creat Clear Calc 141.7 Estimated GFR > 60 Random Glucose 148 H Calcium 9.4 Magnesium 2.1 Lipase 17 Urine Color Yellow Urine Appearance Clear Urine pH 5.5 Ur Specific [place] >= 1.030 H Urine Protein Negative Urine Glucose (UA) Negative Urine Ketones Negative Urine Blood Negative Urine Nitrite Negative Ur Leukocyte Esterase Negative Salicylates < 5.0 L Urine Opiates Screen POSITIVE H Urine Fentanyl Screen POSITIVE H Ur Barbiturates Screen Not Detected Ur Phencyclidine Scrn Not Detected Ur Amphetamines Screen Not Detected U Benzodiazepines Scrn POSITIVE H Urine Cocaine Screen POSITIVE H U Marijuana (THC) Screen Not Detected Ethyl Alcohol < 10 COVID-19 ([facility]) Negative COVID-19 Clin Com See Note Meds/Allergies Meds Home Medications Medication Instructions Recorded Confirmed Type methadone 10 mg/mL oral 65 mg PO DAILY 01/06/21 04/15/23 History concentrate (Methadone Intensol) nicotine (polacrilex) 4 mg gum 4 mg buccal Q1H PRN Nicotine 04/15/23 04/15/23 History Cravings omeprazole 40 mg capsule,delayed 40 mg PO DAILY@0630 04/15/23 04/15/23 History release sennosides 8.6 mg tablet (senna) 8.6 mg PO BEDTIME PRN Constipation 04/15/23 04/15/23 History sildenafil 50 mg tablet 50 mg PO DAILY PRN Erectile 04/15/23 04/15/23 History Dysfunction Allergies Allergies Allergy/AdvReac Type Severity Reaction Status Date / Time No Known Allergies Allergy Verified 01/19/21 22:17 [No Known Allergies*] Mental Status Exam Mental Status Exam Patient Appearance: Well Grooomed and Appropriate Patient Orientation: Person, Place, Time and Situation Level of Consciousness: Awake Patient Behavior: Passive Mood Description: Depressed Affect Description: Blunted Patient Cognition Impaired: No Ability to Follow Directions: Good Speech Pattern: Clear Memory Description: Intact Hallucinations: None Delusions: Not Present Thought Process: Intact and Goal Oriented Thought Content: positive for Intact and positive for Suicidal Ideation Depressive Symptoms: Difficulty Sleeping, Feelings of Worthlessness, Hopelessness, Feelings of Guilt and Increased Fatigue Judgement: Fair Assessment & Plan Assessment & Plan (1) Depressed: Status: Acute Code(s): F32.9 - Major depressive disorder, single episode, unspecified Assessment and Plan: 04/16 start wellbutrin 150mg xl in am prn seroquel at night (2) Opioid use disorder, severe, dependence: Status: Acute Code(s): F11.20 - Opioid dependence, uncomplicated Assessment and Plan: continue methadone ? consult addiction re sublicade (3) Suicidal ideation: Status: Acute Code(s): R45.851 - Suicidal ideations Assessment and Plan: continue to monitor- no current intent on unit Plan see above Patient educated on: diagnosis, medication risk/benefits and substance abuse Informed Consent: understands Reason for continued inpatient stay Substantial Risk for: harm to self and rapid decompensation Statement Statement: I have reviewed the history and physical and performed a pertinent examination on my patient. No changes have occurred unless specified. If the History and Physical was not performed prior to admission, the Hospitalist's service will be consulted for completing the admission physical. Time Spent With Patient Time: Total time managing care of this patient today ____ minutes.
[2023-04-16] MEDS: Nicotine 21 MG PATCH.TD24 TRANSDERMA (09:21)
[2023-04-16] MEDS: methADONE HCl 20 MG/2 ML ORAL.CONC 65 MG PO (09:21)
[2023-04-16 20:05] VITALS: BP 134/65; PULSE 53; RESP 18; TEMP 36.8; O2SAT 96
[2023-04-16] MEDS: QUEtiapine Fumarate 100 MG TABLET PO (20:09)
[2023-04-17] MEDS: Omeprazole 40 MG CAPSULE.DR PO (06:46)
[2023-04-17 07:35] VITALS: BP 114/52; PULSE 58; RESP 16; TEMP 35.9; O2SAT 96
[2023-04-17] MEDS: methADONE HCl 20 MG/2 ML ORAL.CONC 65 MG PO (09:24)
[2023-04-17] MEDS: buPROPion HCl XL 150 MG TAB.ER.24H PO (09:24)
[2023-04-17] MEDS: Nicotine 21 MG PATCH.TD24 TRANSDERMA (09:28)
--- NOTE | 2023-04-17 12:48 | HO.PSYCHPN ---
Subjective Subjective Date of Service: 04/17/23 Reason For Visit: crisis Subjective Notes: Conditional Voluntary Interim History: Pt reports he will spend one more day in bed but will get up and engaged tomorrow- recovering from substance relapse- and had his birthday yesterday- reports his gf came to visit and it was nice. He slept with seroquel last pm, and started wellbutrin again this am - still down and flat affect- Medication Compliance: Yes Side effects from medications: No Attending Groups: No Review of Systems Acute medical concerns: No Medical Review of Systems: unchanged Mental Status Exam Mental Status Exam Patient Appearance: Well Grooomed Patient Orientation: Person, Place, Time and Situation Level of Consciousness: Awake and Alert Patient Behavior: Passive and Avoidant Mood Description: Calm and Sad Affect Description: Constricted Patient Cognition Impaired: No Ability to Follow Directions: Good Speech Pattern: Clear Hallucinations: None Delusions: Not Present Thought Process: Intact Thought Content: positive for Goal Oriented Depressive Symptoms: Feelings of Worthlessness Judgement: Fair Diagnostics Vital Signs (24Hr): Vital Signs - 24 hr 04/16/23 20:05 04/17/23 07:35 Temperature 98.3 F 96.7 F L Pulse Rate 53 58 Respiratory Rate 18 16 Blood Pressure 134/65 114/52 L Pulse Oximetry 96 96 Oxygen Delivery Method Room Air Room Air BMI result Body Mass Index 29.0 Labs 04/14/23 20:49 04/14/23 20:49 Medications Medications Current Medications Acetaminophen (Acetaminophen 325 Mg Tablet) 650 mg PO Q6H PRN PRN Reason: Headache/Pain Mild Scale (1-3) Al Hydroxide/Mg Hydroxide (Magnesium Hydrox/Alum Hydrox 30 Ml Oral.Susp) 30 ml PO Q6H PRN PRN Reason: Heartburn/Nausea Bupropion HCl (Bupropion Hcl Xl 150 Mg Tab.Er.24h) 150 mg PO DAILY DANY Last Admin: 04/17/23 09:24 Dose: 150 mg Clonidine HCl (Clonidine Hcl 0.1 Mg Tablet) 0.1 mg PO TID PRN; Protocol PRN Reason: withdrawal Last Admin: 04/15/23 17:27 Dose: 0.1 mg Hydroxyzine HCl (Hydroxyzine Hcl 25 Mg Tablet) 25 mg PO Q6H PRN PRN Reason: Anxiety Last Admin: 04/15/23 17:27 Dose: 25 mg Ibuprofen (Ibuprofen 400 Mg Tablet) 400 mg PO Q6H PRN PRN Reason: Pain, Mild (Pain Scale 1-3) Last Admin: 04/15/23 17:27 Dose: 400 mg Magnesium Hydroxide (Milk Of Magnesia 30 Ml Oral.Susp) 30 ml PO DAILY PRN PRN Reason: Constipation Methadone HCl (Methadone Hcl 20 Mg/2 Ml Oral.Conc) 65 mg PO DAILY [facility] Last Admin: 04/17/23 09:24 Dose: 65 mg Nicotine (Nicotine 21 Mg Patch.Td24) 21 mg TRANSDERMA DAILY [facility] Last Admin: 04/17/23 09:28 Dose: 21 mg Nicotine Polacrilex (Nicotine Polacrilex 2 Mg Gum) 4 mg BUCCAL Q1H PRN PRN Reason: Nicotine Cravings Last Admin: 04/15/23 17:27 Dose: 4 mg Omeprazole (Omeprazole 40 Mg Capsule.Dr) 40 mg PO DAILY@0630 [facility] Last Admin: 04/17/23 06:46 Dose: 40 mg Quetiapine Fumarate (Quetiapine Fumarate 100 Mg Tablet) 100 mg PO BEDTIME PRN PRN Reason: insomnia Last Admin: 04/16/23 20:09 Dose: 100 mg Senna (Sennosides 8.6 Mg Tablet) 8.6 mg PO BEDTIME PRN PRN Reason: Constipation Allergies Allergies Allergy/AdvReac Type Severity Reaction Status Date / Time No Known Allergies Allergy Verified 01/19/21 22:17 [No Known Allergies*] Assessment & Plan Assessment & Plan (1) Depressed: Status: Acute Code(s): F32.9 - Major depressive disorder, single episode, unspecified Assessment and Plan: 04/16 start wellbutrin 150mg xl in am prn seroquel at night (2) Opioid use disorder, severe, dependence: Status: Acute Code(s): F11.20 - Opioid dependence, uncomplicated Assessment and Plan: continue methadone ? consult addiction re sublicade (3) Suicidal ideation: Status: Acute Code(s): R45.851 - Suicidal ideations Assessment and Plan: continue to monitor- no current intent on unit Plan see above 04/17 encouraged patient to get out of room and engaged in care Patient educated on: therapeutic strategies Informed Consent: understands Reason for continued inpatient stay Substantial Risk for: harm to self and rapid decompensation Time Spent With Patient Time: Total time managing care of this patient today ____ minutes.
[2023-04-17] MEDS: Nicotine Polacrilex 2 MG GUM 4 MG BUCCAL (14:10)
[2023-04-17] MEDS: QUEtiapine Fumarate 100 MG TABLET PO (20:05)
[2023-04-17 20:10] VITALS: BP 115/62; PULSE 62; RESP 18; TEMP 36.8; O2SAT 96
[2023-04-18] MEDS: Omeprazole 40 MG CAPSULE.DR PO (06:38)
[2023-04-18] MEDS: Nicotine 21 MG PATCH.TD24 TRANSDERMA (09:13)
[2023-04-18] MEDS: buPROPion HCl XL 150 MG TAB.ER.24H PO ×2 (09:13→13:14)
[2023-04-18] MEDS: methADONE HCl 20 MG/2 ML ORAL.CONC 65 MG PO (09:14)
--- NOTE | 2023-04-18 12:26 | P.PNPSI_ITS ---
Subjective Subjective Date of Service: 04/18/23 Reason For Visit: crisis Subjective Notes: Conditional Voluntary Interim History: 33 yo WM continues depressed and withdrawn, not engaging in mileu- Encouraged pt to get oob and go to groups - be out of his room- Nursing reports out somewhat in evening - Pt didn't sleep well despite seroquel- discussed withhim sleep drive and if he is in bed during day not building up enough sleep drive - Also discussed inc wellbutrin from 150mg to 300mg today- ongoing si but no plan/intent here Medication Compliance: Yes Side effects from medications: No Attending Groups: No Review of Systems Acute medical concerns: No Medical Review of Systems: unchanged Mental Status Exam Mental Status Exam Patient Appearance: Well Grooomed Patient Orientation: Person, Place, Time and Situation Level of Consciousness: Awake and Alert Patient Behavior: Passive and Avoidant Mood Description: Calm and Sad Affect Description: Constricted Patient Cognition Impaired: No Ability to Follow Directions: Good Speech Pattern: Clear Hallucinations: None Delusions: Not Present Thought Process: Intact Thought Content: positive for Goal Oriented Depressive Symptoms: Feelings of Worthlessness Judgement: Fair Diagnostics Vital Signs (24Hr): Vital Signs - 24 hr 04/17/23 20:10 Temperature 98.3 F Pulse Rate 62 Respiratory Rate 18 Blood Pressure 115/62 Pulse Oximetry 96 Oxygen Delivery Method Room Air BMI result Body Mass Index 29.0 Labs 04/14/23 20:49 04/14/23 20:49 Medications Medications Current Medications Acetaminophen (Acetaminophen 325 Mg Tablet) 650 mg PO Q6H PRN PRN Reason: Headache/Pain Mild Scale (1-3) Al Hydroxide/Mg Hydroxide (Magnesium Hydrox/Alum Hydrox 30 Ml Oral.Susp) 30 ml PO Q6H PRN PRN Reason: Heartburn/Nausea Bupropion HCl (Bupropion Hcl Xl 150 Mg Tab.Er.24h) 150 mg PO DAILY DANY Last Admin: 04/18/23 09:13 Dose: 150 mg Clonidine HCl (Clonidine Hcl 0.1 Mg Tablet) 0.1 mg PO TID PRN; Protocol PRN Reason: withdrawal Last Admin: 04/15/23 17:27 Dose: 0.1 mg Hydroxyzine HCl (Hydroxyzine Hcl 25 Mg Tablet) 25 mg PO Q6H PRN PRN Reason: Anxiety Last Admin: 04/15/23 17:27 Dose: 25 mg Ibuprofen (Ibuprofen 400 Mg Tablet) 400 mg PO Q6H PRN PRN Reason: Pain, Mild (Pain Scale 1-3) Last Admin: 04/15/23 17:27 Dose: 400 mg Magnesium Hydroxide (Milk Of Magnesia 30 Ml Oral.Susp) 30 ml PO DAILY PRN PRN Reason: Constipation Methadone HCl (Methadone Hcl 20 Mg/2 Ml Oral.Conc) 65 mg PO DAILY [facility] Last Admin: 04/18/23 09:14 Dose: 65 mg Nicotine (Nicotine 21 Mg Patch.Td24) 21 mg TRANSDERMA DAILY [facility] Last Admin: 04/18/23 09:13 Dose: 21 mg Nicotine Polacrilex (Nicotine Polacrilex 2 Mg Gum) 4 mg BUCCAL Q1H PRN PRN Reason: Nicotine Cravings Last Admin: 04/17/23 14:10 Dose: 4 mg Omeprazole (Omeprazole 40 Mg Capsule.Dr) 40 mg PO DAILY@0630 [facility] Last Admin: 04/18/23 06:38 Dose: 40 mg Quetiapine Fumarate (Quetiapine Fumarate 100 Mg Tablet) 100 mg PO BEDTIME PRN PRN Reason: insomnia Last Admin: 04/17/23 20:05 Dose: 100 mg Senna (Sennosides 8.6 Mg Tablet) 8.6 mg PO BEDTIME PRN PRN Reason: Constipation Allergies Allergies Allergy/AdvReac Type Severity Reaction Status Date / Time No Known Allergies Allergy Verified 01/19/21 22:17 [No Known Allergies*] Assessment & Plan Assessment & Plan (1) Depressed: Status: Acute Code(s): F32.9 - Major depressive disorder, single episode, unspecified Assessment and Plan: 04/16 start wellbutrin 150mg xl in am prn seroquel at night 04/18/23 inc wellbutrin 300mg xl, advised to get out of bed and engage in treatment on unit (2) Opioid use disorder, severe, dependence: Status: Acute Code(s): F11.20 - Opioid dependence, uncomplicated Assessment and Plan: continue methadone ? consult addiction re sublicade (3) Suicidal ideation: Status: Acute Code(s): R45.851 - Suicidal ideations Assessment and Plan: continue to monitor- no current intent on unit Plan see above 04/17 encouraged patient to get out of room and engaged in care Patient educated on: medication risk/benefits and therapeutic strategies Informed Consent: understands Reason for continued inpatient stay Substantial Risk for: harm to self and rapid decompensation Time Spent With Patient Time: Total time managing care of this patient today ____ minutes.
[2023-04-18] MEDS: Nicotine Polacrilex 2 MG GUM 4 MG BUCCAL ×2 (13:40→16:46)
[2023-04-18 16:44] VITALS: BP 116/76; PULSE 95
[2023-04-18] MEDS: cloNIDine HCL 0.1 MG TABLET PO (16:45)
[2023-04-18 19:50] VITALS: BP 123/69; PULSE 76; RESP 18; TEMP 36; O2SAT 98
[2023-04-18] MEDS: QUEtiapine Fumarate 100 MG TABLET PO (21:06)
[2023-04-18] MEDS: hydrOXYzine HCL 25 MG TABLET PO (21:08)
[2023-04-19] MEDS: Omeprazole 40 MG CAPSULE.DR PO (06:57)
[2023-04-19 11:47] VITALS: BP 99/68; PULSE 94; RESP 16; TEMP 36.5; O2SAT 99
[2023-04-19] MEDS: Nicotine 21 MG PATCH.TD24 TRANSDERMA (11:47)
[2023-04-19] MEDS: methADONE HCl 20 MG/2 ML ORAL.CONC 65 MG PO (11:48)
[2023-04-19] MEDS: buPROPion HCl XL 300 MG TAB.ER.24H PO (11:48)
[2023-04-19] MEDS: Nicotine Polacrilex 2 MG GUM 4 MG BUCCAL ×2 (11:50→16:22)
--- NOTE | 2023-04-19 14:30 | HO.PSYCHPN ---
Subjective Subjective Date of Service: 04/19/23 Reason For Visit: crisis Interim History: calm, cooperative. feels he is on the right medications at this point, not interested in further changes. pt is interested in legal recovery specialist and speaking with addiction team about outpt Tx options, as well as rehab referrals. Mental Status Exam Mental Status Exam Narrative: Appearance: casually groomed, fair hygiene in NAD Behavior:cooperative psychomotor: no agitation or retardation noted Speech:clear, normal rate/rhythm/volume, spontaneous Thought process:linear Thought content:no signs of psychosis, future oriented Mood: not assessed Affect: constricted, non labile SI: none expressed HI: none expressed VH/AH: none expressed Insight/judgment:fair x 2. Memory/cog: alert, oriented x 3. grossly intact to conversational testing. Diagnostics Vital Signs (24Hr): Vital Signs - 24 hr 04/18/23 16:44 04/18/23 19:50 04/19/23 11:47 Temperature 96.8 F 97.7 F Pulse Rate 95 76 94 Respiratory Rate 18 16 Blood Pressure 116/76 123/69 99/68 Pulse Oximetry 98 99 Oxygen Delivery Method Room Air Room Air BMI result Body Mass Index 29.0 Labs 04/14/23 20:49 04/14/23 20:49 Medications Medications Current Medications Acetaminophen (Acetaminophen 325 Mg Tablet) 650 mg PO Q6H PRN PRN Reason: Headache/Pain Mild Scale (1-3) Al Hydroxide/Mg Hydroxide (Magnesium Hydrox/Alum Hydrox 30 Ml Oral.Susp) 30 ml PO Q6H PRN PRN Reason: Heartburn/Nausea Bupropion HCl (Bupropion Hcl Xl 300 Mg Tab.Er.24h) 300 mg PO DAILY [facility] Last Admin: 04/19/23 11:48 Dose: 300 mg Clonidine HCl (Clonidine Hcl 0.1 Mg Tablet) 0.1 mg PO TID PRN; Protocol PRN Reason: withdrawal Last Admin: 04/18/23 16:45 Dose: 0.1 mg Hydroxyzine HCl (Hydroxyzine Hcl 25 Mg Tablet) 25 mg PO Q6H PRN PRN Reason: Anxiety Last Admin: 04/18/23 21:08 Dose: 25 mg Ibuprofen (Ibuprofen 400 Mg Tablet) 400 mg PO Q6H PRN PRN Reason: Pain, Mild (Pain Scale 1-3) Last Admin: 04/15/23 17:27 Dose: 400 mg Magnesium Hydroxide (Milk Of Magnesia 30 Ml Oral.Susp) 30 ml PO DAILY PRN PRN Reason: Constipation Methadone HCl (Methadone Hcl 20 Mg/2 Ml Oral.Conc) 65 mg PO DAILY [facility] Last Admin: 04/19/23 11:48 Dose: 65 mg Nicotine (Nicotine 21 Mg Patch.Td24) 21 mg TRANSDERMA DAILY [facility] Last Admin: 04/19/23 11:47 Dose: 21 mg Nicotine Polacrilex (Nicotine Polacrilex 2 Mg Gum) 4 mg BUCCAL Q1H PRN PRN Reason: Nicotine Cravings Last Admin: 04/19/23 11:50 Dose: 4 mg Omeprazole (Omeprazole 40 Mg Capsule.Dr) 40 mg PO DAILY@0630 [facility] Last Admin: 04/19/23 06:57 Dose: 40 mg Quetiapine Fumarate (Quetiapine Fumarate 100 Mg Tablet) 100 mg PO BEDTIME PRN PRN Reason: insomnia Last Admin: 04/18/23 21:06 Dose: 100 mg Senna (Sennosides 8.6 Mg Tablet) 8.6 mg PO BEDTIME PRN PRN Reason: Constipation Allergies Allergies Allergy/AdvReac Type Severity Reaction Status Date / Time No Known Allergies Allergy Verified 01/19/21 22:17 [No Known Allergies*] Assessment & Plan Assessment & Plan (1) Depressed: Status: Acute Code(s): F32.9 - Major depressive disorder, single episode, unspecified (2) Opioid use disorder, severe, dependence: Status: Acute Code(s): F11.20 - Opioid dependence, uncomplicated Assessment and Plan: continue methadone ? consult addiction re sublicade (3) Suicidal ideation: Status: Acute Code(s): R45.851 - Suicidal ideations Assessment and Plan: continue to monitor- no current intent on unit Plan 04/16 start wellbutrin 150mg xl in am . prn seroquel at night 04/17 encouraged patient to get out of room and engaged in care 04/18/23 inc wellbutrin 300mg xl, advised to get out of bed and engage in treatment on unit 04/19: calm, cooperative. happy with meds regimen. interested in aftercare planning, asking for TITI Tx options outpt, referral to rehab, legal recovery specialist. 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 Reason for continued inpatient stay Substantial Risk for: inability to function and rapid decompensation Time Spent With Patient Time: Total time managing care of this patient today _25___ minutes.
[2023-04-19 20:24] VITALS: BP 114/65; PULSE 87; RESP 16; TEMP 35.8; O2SAT 96
[2023-04-19] MEDS: QUEtiapine Fumarate 100 MG TABLET PO (21:49)
[2023-04-19] MEDS: hydrOXYzine HCL 25 MG TABLET PO (21:49)
[2023-04-20] MEDS: Omeprazole 40 MG CAPSULE.DR PO (06:46)
[2023-04-20] MEDS: methADONE HCl 20 MG/2 ML ORAL.CONC 65 MG PO (08:20)
[2023-04-20] MEDS: Nicotine 21 MG PATCH.TD24 TRANSDERMA (08:21)
[2023-04-20] MEDS: buPROPion HCl XL 300 MG TAB.ER.24H PO (08:21)
[2023-04-20 11:11] VITALS: BP 121/74; PULSE 77; RESP 18; TEMP 36.1; O2SAT 98
[2023-04-20] MEDS: Nicotine Polacrilex 2 MG GUM 4 MG BUCCAL ×3 (11:16→21:39)
--- NOTE | 2023-04-20 16:42 | HO.PSYCHPN ---
Subjective Subjective Date of Service: 04/20/23 Reason For Visit: crisis Interim History: calm, cooperative. feels meds are fine as they are. focussed on getting into CSS. has transportation available so [facility] are ok. per staff, eating well, not attending groups. no SI/AVH. Mental Status Exam Mental Status Exam Narrative: Appearance: casually groomed, fair hygiene in NAD Behavior:cooperative psychomotor: no agitation or retardation noted Speech:clear, normal rate/rhythm/volume, spontaneous Thought process:linear Thought content:no signs of psychosis, future oriented Mood: not assessed Affect: constricted, non labile SI: none expressed HI: none expressed VH/AH: none expressed Insight/judgment:fair x 2. Memory/cog: alert, oriented x 3. grossly intact to conversational testing. Diagnostics Vital Signs (24Hr): Vital Signs - 24 hr 04/19/23 20:24 04/20/23 11:11 Temperature 96.4 F L 97.0 F Pulse Rate 87 77 Respiratory Rate 16 18 Blood Pressure 114/65 121/74 Pulse Oximetry 96 98 Oxygen Delivery Method Room Air Room Air BMI result Body Mass Index 29.0 Labs 04/14/23 20:49 04/14/23 20:49 Medications Medications Current Medications Acetaminophen (Acetaminophen 325 Mg Tablet) 650 mg PO Q6H PRN PRN Reason: Headache/Pain Mild Scale (1-3) Al Hydroxide/Mg Hydroxide (Magnesium Hydrox/Alum Hydrox 30 Ml Oral.Susp) 30 ml PO Q6H PRN PRN Reason: Heartburn/Nausea Bupropion HCl (Bupropion Hcl Xl 300 Mg Tab.Er.24h) 300 mg PO DAILY [facility] Last Admin: 04/20/23 08:21 Dose: 300 mg Clonidine HCl (Clonidine Hcl 0.1 Mg Tablet) 0.1 mg PO TID PRN; Protocol PRN Reason: withdrawal Last Admin: 04/18/23 16:45 Dose: 0.1 mg Hydroxyzine HCl (Hydroxyzine Hcl 25 Mg Tablet) 25 mg PO Q6H PRN PRN Reason: Anxiety Last Admin: 04/19/23 21:49 Dose: 25 mg Ibuprofen (Ibuprofen 400 Mg Tablet) 400 mg PO Q6H PRN PRN Reason: Pain, Mild (Pain Scale 1-3) Last Admin: 04/15/23 17:27 Dose: 400 mg Magnesium Hydroxide (Milk Of Magnesia 30 Ml Oral.Susp) 30 ml PO DAILY PRN PRN Reason: Constipation Methadone HCl (Methadone Hcl 20 Mg/2 Ml Oral.Conc) 65 mg PO DAILY [facility] Last Admin: 04/20/23 08:20 Dose: 65 mg Nicotine (Nicotine 21 Mg Patch.Td24) 21 mg TRANSDERMA DAILY [facility] Last Admin: 04/20/23 08:21 Dose: 21 mg Nicotine Polacrilex (Nicotine Polacrilex 2 Mg Gum) 4 mg BUCCAL Q1H PRN PRN Reason: Nicotine Cravings Last Admin: 04/20/23 13:51 Dose: 4 mg Omeprazole (Omeprazole 40 Mg Capsule.Dr) 40 mg PO DAILY@0630 [facility] Last Admin: 04/20/23 06:46 Dose: 40 mg Quetiapine Fumarate (Quetiapine Fumarate 100 Mg Tablet) 100 mg PO BEDTIME PRN PRN Reason: insomnia Last Admin: 04/19/23 21:49 Dose: 100 mg Senna (Sennosides 8.6 Mg Tablet) 8.6 mg PO BEDTIME PRN PRN Reason: Constipation Allergies Allergies Allergy/AdvReac Type Severity Reaction Status Date / Time No Known Allergies Allergy Verified 01/19/21 22:17 [No Known Allergies*] Assessment & Plan Assessment & Plan (1) Depressed: Status: Acute Code(s): F32.9 - Major depressive disorder, single episode, unspecified (2) Opioid use disorder, severe, dependence: Status: Acute Code(s): F11.20 - Opioid dependence, uncomplicated Assessment and Plan: continue methadone ? consult addiction re sublicade (3) Suicidal ideation: Status: Acute Code(s): R45.851 - Suicidal ideations Assessment and Plan: continue to monitor- no current intent on unit Plan 04/16 start wellbutrin 150mg xl in am . prn seroquel at night 04/17 encouraged patient to get out of room and engaged in care 04/18/23 inc wellbutrin 300mg xl, advised to get out of bed and engage in treatment on unit 04/19: calm, cooperative. happy with meds regimen. 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 04/20: stable, pursuing CSS placements. Reason for continued inpatient stay Substantial Risk for: inability to function and rapid decompensation Time Spent With Patient Time: Total time managing care of this patient today __25__ minutes.
[2023-04-20 20:35] VITALS: BP 114/74; PULSE 75; RESP 18; TEMP 36.6; O2SAT 97
[2023-04-21] MEDS: Omeprazole 40 MG CAPSULE.DR PO (06:24)
[2023-04-21 07:00] VITALS: BMI 29.0
[2023-04-21 10:07] VITALS: BP 121/76; PULSE 78; RESP 18; TEMP 36.2; O2SAT 99
[2023-04-21] MEDS: buPROPion HCl XL 300 MG TAB.ER.24H PO (10:08)
[2023-04-21] MEDS: Nicotine 21 MG PATCH.TD24 TRANSDERMA (10:08)
[2023-04-21] MEDS: methADONE HCl 20 MG/2 ML ORAL.CONC 65 MG PO (10:09)
--- NOTE | 2023-04-21 10:55 | MHC.RECOVRN ---
Met with pt on M3 after consult placed to Addiction Medicine for outpatient recovery support. Pt presented to the ED reporting needing mental health treatment following recent recurrence. Upon evaluation, pt admitted for depression, SI, and OUD. Pt awake, alert, easily engages in conversation, future oriented and focused on recovery and going to [facility] after discharge from [facility]. Pt reports recent period of 1.5 years in recovery and is looking forward to recovery again. Pt has been to many different levels of care, familiar with the process. Pt is currently hoping for [facility], [facility], or [facility]. Pt reports making phone calls and advocating for placement. Pt reports currently on methadone, 65 mg daily, doing well with dose. Pt reports interest in transitioning to Suboxone with a goal of Sublocade. Educated pt on methods to transition, including microdosing. Pt encouraged to discuss with OTP/OBAT when at [facility]. Pt aware [facility] is able to do this, however, pt will likely not be in the area. Pt provided with written recovery resources as well as t/w contact information if needed. Pt denies questions or concerns for t/w.
--- NOTE | 2023-04-21 13:43 | PM.PSYDC ---
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 provider been notified: No DS: Diagnosis Discharge Diagnosis (1) Depressed: Status: Resolved (2) Opioid use disorder, severe, dependence: Status: Acute (3) Suicidal ideation: Status: Resolved DS: Medications Discharge Medications Home Medications: Home Medications Medication Instructions Recorded Confirmed methadone 10 mg/mL oral 65 mg PO DAILY 01/06/21 04/15/23 concentrate (Methadone Intensol) sildenafil 50 mg tablet 50 mg PO DAILY PRN Erectile 04/15/23 04/15/23 Dysfunction Previous Rx's Medication Instructions Recorded bupropion HCl 300 mg 24 hr tablet, 300 mg PO DAILY 30 days #30 tabs 04/21/23 extended release clonidine HCl 0.1 mg tablet 0.1 mg PO DAILY PRN withdrawal 30 04/21/23 days #30 tabs hydroxyzine HCl 25 mg tablet 25 mg PO DAILY PRN Anxiety 30 days 04/21/23 #30 tabs nicotine (polacrilex) 4 mg gum 4 mg buccal Q1H PRN Nicotine 04/21/23 Cravings 30 days #110 ea nicotine 21 mg/24 hr daily 21 mg transdermal DAILY 28 days 04/21/23 transdermal patch #28 ea omeprazole 40 mg capsule,delayed 40 mg PO DAILY@0630 30 days #30 04/21/23 release caps quetiapine 100 mg tablet 100 mg PO BEDTIME insomnia 30 days 04/21/23 #30 tabs sennosides 8.6 mg tablet (senna) 8.6 mg PO BEDTIME PRN Constipation 04/21/23 30 days #30 tabs Mental Status Exam Mental Status Exam Narrative: Appearance: casually groomed, fair hygiene in NAD Behavior:cooperative psychomotor: no agitation or retardation noted Speech:clear, normal rate/rhythm/volume, spontaneous Thought process:linear Thought content:no signs of psychosis, future oriented Mood: in good spirits Affect: constricted, non labile SI: none HI: none VH/AH: none Insight/judgment:fair x 2. Memory/cog: alert, oriented x 3. grossly intact to conversational testing. Data Data Completed and Pending Completed studies during hospitalization [Text1]: 04/14/23 04/14/23 04/15/23 20:49 22:53 10:38 WBC 8.3 RBC 4.41 L Hgb 13.1 L Hct 37.9 L MCV 85.9 MCH 29.7 MCHC 34.6 RDW 13.3 Plt Count 282 MPV 8.7 L Immature Gran % (Auto) 0.2 Neut % (Auto) 40.9 L Lymph % (Auto) 50.8 H [place] % (Auto) 5.7 Eos % (Auto) 1.9 Baso % (Auto) 0.5 Lymph # (Auto) 4.2 [place] # (Auto) 0.5 Eos # (Auto) 0.2 Baso # (Auto) 0.0 Abs Immat Gran (auto) 0.02 Absolute Neuts (auto) 3.4 Absolute Nucleated RBC 0.000 Nucleated RBC % (auto) 0.0 Sodium 138 Potassium 4.1 Chloride 105 Carbon Dioxide 25 Anion Gap 12 BUN 32 H Creatinine 0.99 Estim Creat Clear Calc 141.7 Estimated GFR > 60 Random Glucose 148 H Calcium 9.4 Magnesium 2.1 Lipase 17 Urine Color Yellow Urine Appearance Clear Urine pH 5.5 Ur Specific [place] >= 1.030 H Urine Protein Negative Urine Glucose (UA) Negative Urine Ketones Negative Urine Blood Negative Urine Nitrite Negative Ur Leukocyte Esterase Negative Salicylates < 5.0 L Urine Opiates Screen POSITIVE H Urine Fentanyl Screen POSITIVE H Ur Barbiturates Screen Not Detected Ur Phencyclidine Scrn Not Detected Ur Amphetamines Screen Not Detected U Benzodiazepines Scrn POSITIVE H Urine Cocaine Screen POSITIVE H U Marijuana (THC) Screen Not Detected Ethyl Alcohol < 10 COVID-19 ([facility]) Negative COVID-19 Clin Com See Note DS: Summary Hospital Course Hospital Course: per 04/16 admission note: 33 yo WM presented s/p relpase on multiple substances after leaving detox- used heroin, fentanyl, cocaine and benzodiazepines- denies it was a suicide attempt though he has si - he didn't od- He had hx of od 2015. He reports things started to decline when he stopped his wellbutrin for depression- he felt more down, slept more, and lead to relapse while on methadone of opiate use. He reports doesn't know why he went off wellbutrin thinks he even had refills. hoping to get on sublicade through his [facility]. Reports he attends has gf of 10 month relationship, and had a job for last few months not sure if he still has it. Past Psychiatric History: IP: [facility] 2016 s/p heroin overdose OP: Denies current alliance Trials: Affirms, without ability to give specifics Medical Evaluation Reviewed: Yes [facility] Medical History (Updated 04/16/23 @ 21:42 by Ellyn Madrigal MD) Opioid use disorder, severe, dependence Severe recurrent major depression Depressed Anxiety Family History: addiction, depression Social History: Middle child of three. Father passed in 2015 of cirrhosis. Left school in his carmel year Hx of athletic skill and talent. Reports injury with need for pain medication and resulting transition to opiates denies hx of aggression, no serious correction/legal issues Substance History: goes to Trauma History: Affirms [facility]is: 04/16 start wellbutrin 150mg xl in am . prn seroquel at night 04/17 encouraged patient to get out of room and engaged in care 04/18/23 inc wellbutrin 300mg xl, advised to get out of bed and engage in treatment on unit 04/19: calm, cooperative. happy with meds regimen. 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 04/20: stable, pursuing CSS placements. 04/21: stable. no notable events or behaviors. accepted for CSS tomorrow. 04/22: discharged to [facility] as per plan. Time Spent with Patient Time attestation: Total time managing care of this patient today ____ minutes. Time spent: Greater than 30 minutes Discharge Plan Discharge Anticipated Discharge Date/Time: 04/22/23 11:00 Patient Disposition: Xfer Inpatient Rehab Fac Discharge Diagnosis: Bipolar Disorder Polysubstance Use Disorder Referrals: Nik Palm MD [Primary Care Provider] - 04/22/23 9:37 am (PCP will contact patient with follow-up appt. ) Discharge Medications: New clonidine HCl 0.1 mg Tablet 0.1 mg PO DAILY PRN (Reason: withdrawal) 30 Days Qty: 30 0RF Protocol: Hold for SBP< HOLD for SBP < : 90 quetiapine 100 mg Tablet 100 mg PO BEDTIME 30 Days Qty: 30 0RF nicotine 21 mg/24 hr Patch 24 Hour 21 mg transdermal DAILY 28 Days Qty: 28 0RF hydroxyzine HCl 25 mg Tablet 25 mg PO DAILY PRN (Reason: Anxiety) 30 Days Qty: 30 0RF bupropion HCl 300 mg Tablet Extended Release 24 Hr 300 mg PO DAILY 30 Days Qty: 30 0RF Continued methadone [Methadone Intensol] 10 mg/mL Concentrate 65 mg PO DAILY sildenafil 50 mg tablet 50 mg PO DAILY PRN (Reason: Erectile Dysfunction) sennosides [senna] 8.6 mg Tablet 8.6 mg PO BEDTIME PRN (Reason: Constipation) 30 Days Qty: 30 0RF omeprazole 40 mg capsule,delayed release(DR/EC) 40 mg PO DAILY@0630 30 Days Qty: 30 0RF nicotine (polacrilex) 4 mg Gum 4 mg BUCCAL Q1H PRN (Reason: Nicotine Cravings) 30 Days Qty: 110 0RF Rx Instructions: MAX 24 PIECES / DAY Discharge Orders: Discharge Order (Routine); Ordered 04/22/23 Ordered By: Dwaine Nye Diet: Advance to usual diet Activity on Discharge: As tolerated Stand Alone Forms: Patient Portal Discharge page, Community Support Care Plan Goals: remain safe, stable, and sober in the outpatient treatment setting Health Concerns: none Plan of Treatment: take medications as prescribed, attend appointments as scheduled Assessment: not at imminent risk of harm to self or others Discharge Date/Time: 04/22/23 13:27
[2023-04-21 20:30] VITALS: BP 131/80; PULSE 75; RESP 18; TEMP 36.4; O2SAT 98
[2023-04-22] MEDS: Omeprazole 40 MG CAPSULE.DR PO (09:30)
== END 2023-04-22 13:27 | DRG 753 ==
LOC: HO.ED 04-15 02:04 → HO.PADLT16 04-15 14:33
PROVIDERS: Emergency Medicine; Physician Assistant Medical; Admitting Provider Registered Nurse; Emergency Provider Internal Medicine; PCP Internal Medicine; Visit Provider Psychiatry & Neurology Psychiatry
DX: F31.30 Bipolar disorder, current episode depressed, mild or moderate severity, unspecified (principal); R45.851 Suicidal ideations; F11.20 Opioid dependence, uncomplicated; F17.210 Nicotine dependence, cigarettes, uncomplicated; Z71.6 Tobacco abuse counseling; Z20.822 Contact with and (suspected) exposure to COVID-19; Z79.899 Other long term (current) drug therapy
CPT/HCPCS: 0241U; 36415; 80048; 80179; 80307; 81003; 83690; 83735; 85025; 87635; 93005; 99285; S9485

== ENCOUNTER → 2023-04-15 08:18 | Outpatient (BNV) | payer OTHER, SELFPAY | PROVIDERS: Admitting Provider Registered Nurse; Emergency Provider Internal Medicine; PCP Internal Medicine; Visit Provider Internal Medicine | DX: R45.851 Suicidal ideations (principal); F14.20 Cocaine dependence, uncomplicated | CPT/HCPCS: 93010 ==

== ENCOUNTER → 2023-04-15 14:26 | Outpatient (BNV) | payer OTHER, SELFPAY | PROVIDERS: Admitting Provider Registered Nurse; Emergency Provider Internal Medicine; PCP Internal Medicine; Visit Provider Psychiatry & Neurology Psychiatry | DX: F33.2 Major depressive disorder, recurrent severe without psychotic features (principal); F11.20 Opioid dependence, uncomplicated; R45.851 Suicidal ideations | CPT/HCPCS: 99231; 99239 ==